=== PATIENT | male | born 1985 ===

== ENCOUNTER → 2020-05-31 15:10 | Outpatient (REF) | payer OTHER, SELFPAY ==
--- NOTE | 2020-05-31 15:15 | ECG_ITS ---
Test Reason : OPIOD DEPENDENCE Blood Pressure : / mmHG Vent. Rate : 074 BPM Atrial Rate : 074 BPM P-R Int : 144 ms QRS Dur : 090 ms QT Int : 410 ms P-R-T Axes : 066 066 055 degrees QTc Int : 455 ms Normal sinus rhythm Normal ECG When compared with ECG of 30-NOV-2017 04:22, No significant change was found Referred By: Rianna Morrissey Electronically Signed By:AUREA JOHNSON
== END ==
LOC: HO.CARD 15:10
PROVIDERS: PCP Internal Medicine; Visit Provider Internal Medicine
DX: F11.20 Opioid dependence, uncomplicated (principal)
CPT/HCPCS: 93005

== ENCOUNTER → 2020-08-14 13:24 | Outpatient (BNVA) | payer OTHER, SELFPAY | PROVIDERS: PCP Internal Medicine; Visit Provider Physician Assistant ==

== ENCOUNTER → 2020-09-05 13:14 | Outpatient (BNVA) | payer OTHER, SELFPAY | PROVIDERS: PCP Internal Medicine; Visit Provider Physician Assistant ==

== ENCOUNTER 2020-09-17 | Outpatient (REF) | payer OTHER, SELFPAY ==
--- NOTE | ~2020-09-17 | FL_ITS ---
EXAMINATION: FL BARIUM SWALLOW CLINICAL INFORMATION: Gastroesophageal complex disease without esophagitis COMPARISON: None TECHNIQUE: Barium swallow examination is performed using fluoroscopic evaluation in addition to multiple fluoroscopic spot views. The patient is imaged both upright and prone and using both thick and thin sulfate along with effervescent granules. Barium tablet was also administered. Fluoroscopy time: 1.5 minutes DAP: 13 Gycm2 Images: 46 FINDINGS: The swallowing mechanism is normal. No aspiration or penetration is seen. Esophageal motility is normal. No hernia or gastroesophageal reflux is seen. The barium tablet passed freely into the stomach. There is fold thickening of the stomach suggestive of gastritis. FL/FL barium swallow IMPRESSION: No gastroesophageal reflux or hernia is seen. There is focal thickening of the stomach suggestive of gastritis.
== END 2020-09-17 00:01 | disposition home or self-care (01) ==
LOC: HO.XRAY
PROVIDERS: Visit Provider Physician Assistant
DX: K21.9 Gastro-esophageal reflux disease without esophagitis (principal)
CPT/HCPCS: 74220

== ENCOUNTER 2021-05-16 11:08 | Outpatient (REF) | payer OTHER, SELFPAY ==
[2021-05-16 11:28] LABS: Binax Internal Control QC Valid; Binax Now Covid-19 Ag Negative (Negative)
== END 2021-05-16 11:09 | disposition home or self-care (01) ==
LOC: HO.LAB 11:08
PROVIDERS: PCP Student in an Organized Health Care Education/Training Program; Visit Provider Internal Medicine
DX: Z20.822 Contact with and (suspected) exposure to COVID-19 (principal)
CPT/HCPCS: C9803

== ENCOUNTER 2021-06-05 11:05 | Outpatient (REF) | payer OTHER, SELFPAY ==
[2021-06-05 11:34] LABS: MANUAL DIFF FLAG NO
[2021-06-05 13:03] LABS: Basophils Percent Auto 0.4 % (0-2); Eosinophils Absolute Auto 0.4 X10*3/uL (0.0-0.4); Eosinophils Percent Auto 4.7 % (0-4); Hematocrit 41.4 % (42.0-52.0); Hemoglobin 14.7 g/dl (14.0-18.0); Imm Gran Abs Auto 0.02 X10*3/uL (0.00-0.03); Imm Gran Pct Auto 0.3 % (0.0-0.4); Lymphocytes Absolute Auto 2.5 X10*3/uL (1.2-4.9); Lymphocytes Percent Auto 33.5 % (20-40); Mean Corpuscular HGB Conc 35.5 g/dl (31.0-36.0); Mean Corpuscular Volume 81.7 fL (80.0-98.0); Mean Platelet Volume 9.9 fL (9.4-12.4); Monocytes Absolute Auto 0.6 X10*3/uL (0.1-1.2); Monocytes Percent Auto 8.3 % (2-11); Neutrophils Absolute Auto 3.9 x10*3/uL (2.0-8.3); Neutrophils Percent Auto 52.8 % (45-73); Platelet Count 301 X10*3/uL (160-400); Red Blood Count 5.07 X10*6/uL (4.60-5.80); Red Cell Distribution Width 13.1 % (11.0-16.0); White Blood Count 7.4 X10*3/uL (4.8-10.8)
[2021-06-05 13:35] LABS: Alanine Aminotransferase 37 U/L (0-40); Albumin Level 4.3 g/dL (3.5-5.0); Alkaline Phosphatase 86 U/L (39-117); Anion Gap 11 (12-20); Aspartate Amino Transferase 34 U/L (5-37); Bilirubin Total 1.2 mg/dL (0.0-1.0); Blood Urea Nitrogen 16 mg/dL (9-16); Calcium 9.4 mg/dL (8.4-10.2); Carbon Dioxide 28 mmol/L (22-29); Chloride 103 mmol/L (96-108); Cholesterol 166 mg/dL; Estimated Glomerular Filt Rate > 60; Glucose Fasting 92 mg/dL (60-99); HDL Cholesterol 42 mg/dL; LDL Cholesterol Calculated 104 mg/dl; Potassium 4.6 mmol/L (3.3-5.1); Sodium 137 mmol/L (135-145); Total Protein 8.2 g/dL (6.5-8.0); Triglycerides 102 mg/dL
== END 2021-06-05 11:06 | disposition home or self-care (01) ==
LOC: HO.LAB 11:05
PROVIDERS: PCP Internal Medicine; Visit Provider Internal Medicine
DX: E66.3 Overweight (principal); E78.5 Hyperlipidemia, unspecified; D64.9 Anemia, unspecified; K21.9 Gastro-esophageal reflux disease without esophagitis
CPT/HCPCS: 36415; 80053; 80061; 85025

== ENCOUNTER 2021-06-10 09:44 | Outpatient (REF) | payer OTHER, SELFPAY ==
--- NOTE | ~2021-06-10 | US_ITS ---
EXAMINATION: US ABDOMEN COMPLETE CLINICAL INFORMATION: Abdominal pain. COMPARISON: Ultrasound abdomen 12/20/2017 and 07/30/2016. MR abdomen 07/21/2012. CT abdomen and pelvis 06/17/2012. TECHNIQUE: Real-time imaging of the abdominal viscera. FINDINGS: PANCREAS: The pancreas could not be evaluated as it was obscured by bowel gas. ABDOMINAL AORTA: The proximal, mid, and distal segments are normal in caliber. INFERIOR VENA CAVA: Visualized portions are normal. LIVER: The liver contour is normal. There is diffuse increased liver parenchymal echogenicity, consistent with hepatic steatosis. A 1 cm sized shadowing calcification is noted in the right lobe of the liver has been noted previously and is unchanged. No focal worrisome solid hepatic lesion. There is no intrahepatic biliary duct dilatation seen. GALLBLADDER: The gallbladder is physiologically distended without evidence of stones, sludge, polyps, wall thickening or pericholecystic fluid. COMMON BILE DUCT: Normal in caliber measuring 0.9 cm in diameter. RIGHT KIDNEY: No hydronephrosis. No renal calculi or focal parenchymal lesions. The kidney measures 9.4 cm in maximum dimension. LEFT KIDNEY: No hydronephrosis. No renal calculi or focal parenchymal lesions. The kidney measures 9.9 cm in maximum dimension. SPLEEN: Normal. The spleen measures 10.0 cm in maximum dimension. FREE FLUID: None. US/US abdomen complete IMPRESSION: Increased echogenicity of liver suggesting hepatic steatosis. Unchanged shadowing calcification right lobe of liver.
== END 2021-06-10 09:45 | disposition home or self-care (01) ==
LOC: HO.US 09:44
PROVIDERS: Visit Provider Internal Medicine
DX: R10.9 Unspecified abdominal pain (principal)
CPT/HCPCS: 76700

== ENCOUNTER → 2021-10-28 14:57 | Outpatient (BNVA) | payer OTHER, SELFPAY | PROVIDERS: PCP Internal Medicine; Visit Provider Surgery Vascular Surgery | DX: I83.11 Varicose veins of right lower extremity with inflammation (principal); F17.210 Nicotine dependence, cigarettes, uncomplicated | CPT/HCPCS: 99212 ==

== ENCOUNTER 2021-11-24 11:27 | Outpatient (REF) | payer OTHER, SELFPAY ==
[2021-11-25 04:50] LABS: ~Hepatitis C Antibody Reactive (Nonreactive)
[2021-11-25 15:46] LABS: HCV RNA PCR Qn 6.49 Log IU/mL (NOT DETECTED)
[2021-12-01 13:57] LABS: HCV Genotype LiPA 1a
== END 2021-11-24 11:28 | disposition home or self-care (01) ==
LOC: HO.LAB 11:27
PROVIDERS: PCP Internal Medicine; Visit Provider Internal Medicine
DX: B19.20 Unspecified viral hepatitis C without hepatic coma (principal)
CPT/HCPCS: 36415; 86803; 87522; 87902

== ENCOUNTER 2021-12-10 09:35 | Outpatient (REF) | payer OTHER, SELFPAY ==
[2021-12-10 11:05] LABS: Hematocrit 42.6 % (42.0-52.0); Hemoglobin 15.2 g/dl (14.0-18.0); Mean Corpuscular HGB Conc 35.7 g/dl (31.0-36.0); Mean Corpuscular Hemoglobin 28.7 pg (27.0-33.0); Mean Corpuscular Volume 80.5 fL (80.0-98.0); Mean Platelet Volume 9.3 fL (9.4-12.4); Platelet Count 274 X10*3/uL (160-400); Red Blood Count 5.29 X10*6/uL (4.60-5.80); Red Cell Distribution Width 13.1 % (11.0-16.0); White Blood Count 7.3 X10*3/uL (4.8-10.8)
[2021-12-10 11:12] LABS: Prothrombin Time 11.4 SEC (10.0-13.1)
[2021-12-10 11:22] LABS: Alanine Aminotransferase 26 U/L (0-40); Albumin Level 4.4 g/dL (3.5-5.0); Alkaline Phosphatase 107 U/L (39-117); Anion Gap 14 (12-20); Aspartate Amino Transferase 27 U/L (5-37); Bilirubin Total 0.6 mg/dL (0.0-1.0); Blood Urea Nitrogen 15 mg/dL (9-16); Calcium 9.2 mg/dL (8.4-10.2); Carbon Dioxide 27 mmol/L (22-29); Chloride 101 mmol/L (96-108); Estimated Glomerular Filt Rate > 60; Glucose Random 95 mg/dL (60-115); Potassium 4.4 mmol/L (3.3-5.1); Sodium 138 mmol/L (135-145); Total Protein 8.3 g/dL (6.5-8.0)
[2021-12-10 11:43] LABS: Hepatitis A Antibody IgG REACTIVE (Nonreactive); ~Hepatitis A Antibody IgG 4.27 S/CO (0.00-0.99)
[2021-12-10 11:45] LABS: TSH reflex Free T4 1.09 uIU/mL (0.32-4.0)
[2021-12-10 11:46] LABS: HBS Num1 73.62 mIU/mL (0-7.99); HBc Num1 0.14 S/CO (0.00-0.79); HBsAGNum1 0.22 S/CO (0.00-0.99); HIV AB/AG Nonreactive (Nonreactive); HIV Num 1 0.06 S/CO (0.00-0.99); Hepatitis B Core Antibody Nonreactive (Nonreactive); Hepatitis B Surface Antigen Negative (Negative); ~Hepatitis B Surface Antibody REACTIVE (Nonreactive)
[2021-12-12 16:52] LABS: HCV RNA PCR Qn 1940000 IU/mL (NOT DETECTED); HCV RNA PCR Qn 6.29 Log IU/mL (NOT DETECTED)
[2021-12-15 00:48] LABS: FIB-ALT 24 U/L (9-46); FIB-Alpha-2-Macroglobulin 171 mg/dL (106-279); FIB-Apolipoprotein A1 170 mg/dL (94-176); FIB-GGT 68 U/L (3-90); FIB-Haptoglobin 115 mg/dL (43-212); FIB-Total Bilirubin 0.7 mg/dL (0.2-1.2); Liver Fibrosis Score 0.19; Liver Fibrosis Stage F0; Nec Inflam Act Grade A0; Nec Inflam Act Score 0.09
[2021-12-18 15:02] LABS: HCV Genotype LiPA 1a
== END 2021-12-10 09:36 | disposition home or self-care (01) ==
LOC: HO.LAB 09:35
PROVIDERS: Nurse Practitioner Family; PCP Internal Medicine; Visit Provider Internal Medicine
DX: Z11.4 Encounter for screening for human immunodeficiency virus [HIV] (principal); B19.20 Unspecified viral hepatitis C without hepatic coma; R13.12 Dysphagia, oropharyngeal phase; K21.9 Gastro-esophageal reflux disease without esophagitis
CPT/HCPCS: 36415; 80053; 81596; 84443; 85027; 85610; 86704; 86706; 86708; 87340; 87389; 87902; 99212

== ENCOUNTER 2021-12-24 10:26 | Outpatient (REF) | payer OTHER, SELFPAY ==
--- NOTE | ~2021-12-24 | US_ITS ---
EXAMINATION: US LOWER EXTREMITY VENOUS (REFLUX EXAM), BILATERAL CLINICAL INDICATION: Varicose veins, bilateral lower extremity pain COMPARISON: Right lower extremity venous duplex on 07/07/2019 TECHNIQUE: Color flow triplex imaging and compression Doppler was performed to evaluate both the deep and the superficial systems bilaterally. To evaluate the superficial system, the examination was performed in the upright position. Color-flow Doppler ultrasound and compression ultrasound were utilized. In addition, maneuvers were utilized to demonstrate reflux. FINDINGS: 1. DEEP VENOUS ULTRASOUND OF THE RIGHT LOWER EXTREMITY: Common Femoral Vein: Compressible, normal respiratory variation and augmented flow. Femoral Vein: Compressible, normal color flow and augmentation. Popliteal Vein: Compressible, normal augmentation. Deep Reflux: There is no evidence of reflux in the deep system in either the common femoral vein or the popliteal vein. There is no evidence of a Bond's cyst. 2. SUPERFICIAL ULTRASOUND WITH DOPPLER OF RIGHT LOWER EXTREMITY: GREAT SAPHENOUS VEIN: Saphenofemoral Junction: 0.6 cm; Reflux: 0 ms Proximal Thigh: 0.5 cm; Reflux: 0 ms Mid Thigh: 0.4 cm; Reflux: 0 ms Above Knee: 0.4 cm; Reflux: 0 ms At Knee: 0.3 cm; Reflux: 0 ms Below Knee: 0.4 cm; Reflux: 2076 ms Mid Calf: 0.2 cm; Reflux: 916 ms Ankle: 00.3 cm; Reflux: 864 ms DUPLICATED MEDIAL GREAT SAPHENOUS VEIN: Diameter: None Imaged Reflux: NA DUPLICATED LATERAL GREAT SAPHENOUS VEIN: Diameter: 0.3 Reflux: NA SMALL SAPHENOUS VEIN: Proximal: 0.2 cm; Reflux: 3056 ms Distal: 0.4 cm; Reflux: 0 ms VEIN OF GIACOMINI: None Imaged. PERFORATORS: Multiple small venous perforators in the calf measuring less than 3 mm. VARICOSITIES: Multiple small varicosities in the thigh and calf measuring up to 0.4 mm. Varicosities in the calf to demonstrate reflux. 3. DEEP VENOUS ULTRASOUND OF THE LEFT LOWER EXTREMITY: Common Femoral Vein: Compressible, normal respiratory variation and augmented flow. Femoral Vein: Compressible, normal color flow and augmentation. Popliteal Vein: Compressible, normal augmentation. Deep Reflux: There is no evidence of reflux in the deep system in either the common femoral vein or the popliteal vein. There is no evidence of a Bond's cyst. 4. SUPERFICIAL ULTRASOUND WITH DOPPLER OF LEFT LOWER EXTREMITY: GREAT SAPHENOUS VEIN: Saphenofemoral Junction: 0.6 cm; Reflux: 0 ms Proximal Thigh: 0.6 cm; Reflux: 0 ms Mid Thigh: 0.4 cm; Reflux: 0 ms Above Knee: 0.5 cm; Reflux: 0 ms At Knee: 0.4 cm; Reflux: 0 ms Below Knee: 0.3 cm; Reflux: 0 ms Mid Calf: 0.3 cm; Reflux: 0 ms Ankle: 0.4 cm; Reflux: 0 ms DUPLICATED MEDIAL GREAT SAPHENOUS VEIN: Diameter: None Imaged Reflux: NA DUPLICATED LATERAL GREAT SAPHENOUS VEIN: Diameter: 0.3 Reflux: None SMALL SAPHENOUS VEIN: Proximal: 0.3 cm; Reflux: 0 ms Distal: 0.4 cm; Reflux: 0 ms VEIN OF GIACOMINI: None Imaged. PERFORATORS: Multiple small venous perforators in the calf measuring less than 3 mm. VARICOSITIES: Multiple small varicosities in the thigh and calf measuring up to 0.4 mm. Varicosities in the calf to demonstrate reflux. US/US venous duplex LE BI IMPRESSION: Right: Venous reflux demonstrated in the great saphenous vein below the knee. There are multiple calf and thigh varicose veins and perforating veins. Left: No reflux demonstrated in the great saphenous vein. There are multiple calf and thigh varicose veins and perforating veins.
== END 2021-12-24 10:27 | disposition home or self-care (01) ==
LOC: HO.US 10:26
PROVIDERS: Visit Provider Surgery Vascular Surgery
DX: I83.813 Varicose veins of bilateral lower extremities with pain (principal)
CPT/HCPCS: 93970

== ENCOUNTER → 2021-12-31 08:27 | Outpatient (BNVA) | payer OTHER, SELFPAY | PROVIDERS: PCP Internal Medicine; Visit Provider Internal Medicine | DX: B19.20 Unspecified viral hepatitis C without hepatic coma (principal); R13.12 Dysphagia, oropharyngeal phase | CPT/HCPCS: 99212 ==

== ENCOUNTER → 2022-01-01 14:06 | Outpatient (BNVA) | payer OTHER, SELFPAY | PROVIDERS: PCP Internal Medicine; Visit Provider Surgery Vascular Surgery | DX: M79.604 Pain in right leg (principal); M79.605 Pain in left leg | CPT/HCPCS: 99212 ==

== ENCOUNTER → 2022-01-22 11:32 | Day surgery (SDC) | payer OTHER, SELFPAY ==
[2022-01-19 09:18] VITALS: BMI 29.0
--- NOTE | 2022-01-21 10:32 | HO.ANESPROP2 ---
HPI - Anesthesia Eval Consult details Narrative: Cx'd for + Utox 36yo M for Upper Endoscopy Methadone daily PMFSH Active Problems Active Problems: All Active Problems (Updated 01/01/22 @ 14:34 by Skinny Fuller MD) Leg pain, bilateral (Acute) Hepatitis C (Acute) Varicose veins of right lower extremity with inflammation (Acute) Gastritis (Acute) Moderate recurrent major depression (Acute) Varicose veins of bilateral lower extremities with pain (Acute) Abdominal pain (Acute) Overweight (Acute) Constipation due to pain medication (Acute) Difficulty swallowing (Acute) Hepatitis C (Acute) Depression with anxiety (Acute) GERD (gastroesophageal reflux disease) (Acute) Methadone use (Acute) Past Medical History Medical History Abdominal pain Asthma Constipation due to pain medication Depression with anxiety Difficulty swallowing Gastritis GERD (gastroesophageal reflux disease) Hepatitis C Methadone use Moderate recurrent major depression Overweight Varicose veins of bilateral lower extremities with pain Family History Family History Father Medical history unknown Mother Diabetes Mental health disorder Substance use disorder Maternal Grandmother Hypertension Maternal Grandfather No problems noted. Brother No problems noted. Brother No problems noted. Sister No problems noted. Sister No problems noted. Daughter No problems noted. Surgical History Surgical History No pertinent past surgical history Social History Social History Household Members: None Housing: Apartment Alcohol intake: former Patient Tobacco Use Status: Current everyday Tobacco user Tobacco use type: Cigarette Cigarettes Per Day: 5 e-Cigarette/Vaping Use: Never Used Second Hand Smoke Exposure: No service: No Current occupational status: disabled Cognitive needs: No Hearing needs: No Vision needs: No Meds Allergies Allergy/AdvReac Type Severity Reaction Status Date / Time diphenhydramine Allergy Intermediate HIVES Verified 01/22/22 11:56 [From BENADRYL] morphine [MORPHINE] Allergy Intermediate BURNING Verified 01/22/22 11:56 Benadryl Allergy Unknown Hives Verified 01/22/22 11:56 Home Medications Medication Instructions Recorded Confirmed Last Taken Type methadone 40 mg soluble tablet 70 mg PO DAILY 04/03/21 01/22/2222 06:30 History Exam Exam Date and Time: January 21, 2022 1032 Height,Weight and Vital Signs: Height 5 ft 11 in Weight 94.347 kg Pertinent Lab Results Pertinent Lab Results: Laboratory Tests 12/10/21 12/10/21 10:03 10:03 WBC 7.3 Hgb 15.2 Hct 42.6 Plt Count 274 Sodium 138 Potassium 4.4 Chloride 101 Carbon Dioxide 27 BUN 15 Creatinine 0.87 Assessment and Plan Assessment Anesthesia Assessment: Chart Reviewed
[2022-01-22 12:36] VITALS: BP 135/89; PULSE 82; RESP 15; TEMP 36.6; O2SAT 95
[2022-01-22 13:00] LABS: Amphetamine Screen Urine Not Detected (Not Detect); Barbiturates, Urine Not Detected (Not Detect); Benzodiazepines Screen Urine Not Detected (Not Detect); Cannabinoid Screen Urine Not Detected (Not Detect); Cocaine Screen Urine Not Detected (Not Detect); Fentanyl, urine POSITIVE (Not Detect); Opiate Screen Urine Not Detected (Not Detect); Phencyclidine Screen Urine Not Detected (Not Detect)
--- NOTE | 2022-01-22 13:31 | PC.NURSE ---
Patient tox screen was positive for fentanyl. Dr. Gusman visited patient at bedside and explained why his procedure is cancelled today and to call her office to reschedule. No IV was ever inserted. Patient is dressing and will leave with ride. Pt verbalizes understanding.
== END ==
PROVIDERS: Nurse Practitioner; PCP Internal Medicine; Visit Provider Internal Medicine
DX: R13.12 Dysphagia, oropharyngeal phase (principal); Z53.8 Procedure and treatment not carried out for other reasons; F11.20 Opioid dependence, uncomplicated; B19.20 Unspecified viral hepatitis C without hepatic coma
CPT/HCPCS: 80307

== ENCOUNTER 2022-02-03 11:38 | Outpatient (REF) | payer OTHER, SELFPAY ==
--- NOTE | ~2022-02-03 | US_ITS ---
EXAMINATION: US ABDOMEN COMPLETE CLINICAL INFORMATION: Unspecified viral hepatitis C without hepatic coma. COMPARISON: Ultrasound abdomen complete 06/10/2021 and 12/20/2017. MRI abdomen with and without contrast 07/21/2012. CT abdomen and pelvis without contrast 06/17/2012. TECHNIQUE: Real-time imaging of the abdominal viscera. FINDINGS: PANCREAS: Not visualized due to bowel gas. ABDOMINAL AORTA: The proximal, mid, and distal segments are normal in caliber. INFERIOR VENA CAVA: Visualized portions are normal. LIVER: The liver is normal in size. The liver contour is normal. Liver echotexture is increased. No focal hepatic lesion. There is no intrahepatic biliary duct dilatation seen. GALLBLADDER: Normal. The gallbladder is physiologically distended without evidence of stones, sludge, polyps, wall thickening or pericholecystic fluid. COMMON BILE DUCT: Normal in caliber measuring 0.3 cm in diameter. RIGHT KIDNEY: Normal. No hydronephrosis. No renal calculi or focal parenchymal lesions. The kidney measures 10.1 cm in maximum dimension. LEFT KIDNEY: Normal. No hydronephrosis. No renal calculi or focal parenchymal lesions. The kidney measures 11.5 cm in maximum dimension. SPLEEN: Normal. The spleen measures 9.5 cm in maximum dimension. FREE FLUID: None. US/US abdomen complete IMPRESSION: Echogenic liver. Differential would include fatty infiltration and hepatocellular disease. No evidence of cirrhosis. No ascites. Limited visualization of the pancreas.
--- NOTE | ~2022-02-03 | US_ITS ---
EXAMINATION: ABDOMINAL LIVER DOPPLER CLINICAL INFORMATION: Bilateral otitis COMPARISON: None TECHNIQUE: Grayscale and color imaging of the liver vasculature including wave forms spectral analysis FINDINGS: The extrahepatic, main, right and left portal veins are patent with appropriate hepatopedal flow. Main, right and left hepatic arteries are patent. These demonstrate normal antegrade flow and normal systolic velocity of 85 cm/s in the main hepatic artery. The middle, left and right hepatic veins are patent. The IVC is patent. These demonstrate normal waveforms. The splenic vein is patent with appropriate flow. No ascites. No collateral vessels seen. US/US duplex arterial venous comp IMPRESSION: Normal liver Doppler exam.
== END 2022-02-03 11:39 | disposition home or self-care (01) ==
LOC: HO.US 11:38
PROVIDERS: Visit Provider Internal Medicine
DX: B19.20 Unspecified viral hepatitis C without hepatic coma (principal)
CPT/HCPCS: 76700; 93975

== ENCOUNTER 2022-02-04 09:17 | Outpatient (REF) | payer OTHER, SELFPAY ==
[2022-02-04 09:35] LABS: MANUAL DIFF FLAG NO
[2022-02-04 10:25] LABS: Basophils Percent Auto 0.3 % (0-2); Eosinophils Absolute Auto 0.3 X10*3/uL (0.0-0.4); Eosinophils Percent Auto 2.1 % (0-4); Hematocrit 42.1 % (42.0-52.0); Imm Gran Abs Auto 0.03 X10*3/uL (0.00-0.03); Imm Gran Pct Auto 0.3 % (0.0-0.4); Lymphocytes Absolute Auto 4.7 X10*3/uL (1.2-4.9); Lymphocytes Percent Auto 40.6 % (20-40); Mean Corpuscular HGB Conc 35.6 g/dl (31.0-36.0); Mean Corpuscular Hemoglobin 28.7 pg (27.0-33.0); Mean Corpuscular Volume 80.5 fL (80.0-98.0); Mean Platelet Volume 9.6 fL (9.4-12.4); Monocytes Absolute Auto 0.7 X10*3/uL (0.1-1.2); Monocytes Percent Auto 5.9 % (2-11); Neutrophils Absolute Auto 5.9 x10*3/uL (2.0-8.3); Neutrophils Percent Auto 50.8 % (45-73); Platelet Count 319 X10*3/uL (160-400); Red Blood Count 5.23 X10*6/uL (4.60-5.80); Red Cell Distribution Width 13.1 % (11.0-16.0); White Blood Count 11.6 X10*3/uL (4.8-10.8)
[2022-02-04 10:54] LABS: Alanine Aminotransferase 17 U/L (0-40); Albumin Level 4.3 g/dL (3.5-5.0); Alkaline Phosphatase 111 U/L (39-117); Anion Gap 16 (12-20); Aspartate Amino Transferase 16 U/L (5-37); Blood Urea Nitrogen 9 mg/dL (9-16); Carbon Dioxide 26 mmol/L (22-29); Chloride 101 mmol/L (96-108); Estimated Glomerular Filt Rate > 60; Glucose Random 76 mg/dL (60-115); Potassium 3.9 mmol/L (3.3-5.1); Sodium 139 mmol/L (135-145); Total Protein 7.7 g/dL (6.5-8.0)
[2022-02-06 18:26] LABS: HCV Log PCR <1.18 NOT DETECTED Log IU/mL (NOT DETECTED); HepC Viral Load <15 NOT DETECTED IU/mL (NOT DETECTED)
== END 2022-02-04 09:18 | disposition home or self-care (01) ==
LOC: HO.LAB 09:17
PROVIDERS: PCP Internal Medicine; Visit Provider Internal Medicine
DX: B19.20 Unspecified viral hepatitis C without hepatic coma (principal)
CPT/HCPCS: 36415; 80053; 85025; 87522; 87902

== ENCOUNTER → 2022-02-09 10:48 | Outpatient (BNVA) | payer OTHER, SELFPAY | PROVIDERS: PCP Internal Medicine; Referring Provider Internal Medicine; Visit Provider Internal Medicine | DX: B19.20 Unspecified viral hepatitis C without hepatic coma (principal); R13.12 Dysphagia, oropharyngeal phase | CPT/HCPCS: 99212 ==

== ENCOUNTER 2022-03-06 10:39 | Outpatient (REF) | payer OTHER, SELFPAY ==
[2022-03-06 11:04] LABS: MANUAL DIFF FLAG NO
[2022-03-06 11:52] LABS: Basophils Percent Auto 0.2 % (0-2); Eosinophils Absolute Auto 0.5 X10*3/uL (0.0-0.4); Hematocrit 37.7 % (42.0-52.0); Hemoglobin 13.9 g/dl (14.0-18.0); Imm Gran Abs Auto 0.04 X10*3/uL (0.00-0.03); Imm Gran Pct Auto 0.3 % (0.0-0.4); Lymphocytes Absolute Auto 2.1 X10*3/uL (1.2-4.9); Lymphocytes Percent Auto 16.9 % (20-40); Mean Corpuscular HGB Conc 36.9 g/dl (31.0-36.0); Mean Corpuscular Hemoglobin 30.2 pg (27.0-33.0); Mean Corpuscular Volume 81.8 fL (80.0-98.0); Mean Platelet Volume 9.4 fL (9.4-12.4); Monocytes Absolute Auto 0.7 X10*3/uL (0.1-1.2); Monocytes Percent Auto 5.7 % (2-11); Neutrophils Percent Auto 72.9 % (45-73); Platelet Count 235 X10*3/uL (160-400); Red Blood Count 4.61 X10*6/uL (4.60-5.80); Red Cell Distribution Width 12.9 % (11.0-16.0); White Blood Count 12.4 X10*3/uL (4.8-10.8)
[2022-03-06 12:20] LABS: Alanine Aminotransferase 16 U/L (0-40); Albumin Level 4.3 g/dL (3.5-5.0); Alkaline Phosphatase 109 U/L (39-117); Anion Gap 18 (12-20); Aspartate Amino Transferase 17 U/L (5-37); Bilirubin Total 1.5 mg/dL (0.0-1.0); Blood Urea Nitrogen 12 mg/dL (9-16); Calcium 9.2 mg/dL (8.4-10.2); Carbon Dioxide 23 mmol/L (22-29); Chloride 100 mmol/L (96-108); Estimated Glomerular Filt Rate > 60; Glucose Random 132 mg/dL (60-115); Sodium 137 mmol/L (135-145)
[2022-03-06 12:46] LABS: Erythrocyte Sedimentation Rate 25 MM/HR (0-15)
[2022-03-06 13:00] LABS: Bilirubin Direct 0.5 mg/dL (0.0-0.5); Magnesium 2.1 mg/dL (1.6-2.6)
[2022-03-10 20:46] LABS: HCV Log PCR <1.18 NOT DETECTED Log IU/mL (NOT DETECTED); HepC Viral Load <15 NOT DETECTED IU/mL (NOT DETECTED)
== END 2022-03-06 10:40 | disposition home or self-care (01) ==
LOC: HO.LAB 10:39
PROVIDERS: PCP Internal Medicine; Visit Provider Internal Medicine
DX: B19.20 Unspecified viral hepatitis C without hepatic coma (principal)
CPT/HCPCS: 36415; 80053; 82248; 82550; 83735; 85025; 85652; 86140; 87522

== ENCOUNTER 2022-03-06 11:12 | Emergency (ER) | payer OTHER, SELFPAY ==
--- NOTE | ~2022-03-06 | US_ITS ---
EXAMINATION: US VENOUS ULTRASOUND WITH DOPPLER LOWER EXTREMITY, LEFT CLINICAL INFORMATION: Left leg pain. COMPARISON: 12/24/2021 TECHNIQUE: Ultrasound of the deep veins is performed from the hip to the calf with compression sonography and color and pulse Doppler assessment. Spectral analysis with color-flow imaging is performed. FINDINGS: There is noncompressible thrombus filling the lumen of the left common femoral vein. Also, thrombus is detected within the greater saphenous vein of the proximal thigh, including saphenofemoral junction. There is partially occlusive thrombus within the visualized profunda femoris vein. There is occlusive and nonocclusive thrombus of the superficial femoral vein of the proximal, mid and lower thigh. Also, thrombus is present within the popliteal vein and within a posterior tibial vein. There is no gross evidence for thrombosis in the peroneal veins. No Bond's cyst. US/US venous duplex LE IMPRESSION: There is extensive deep vein thrombosis of the left femoral and popliteal veins, as well as within the visualized greater saphenous vein and saphenofemoral junction of the upper thigh. The critical test result was discussed VALERIE Carr, at 1:47 PM on 03/06/2022 it was ascertained that the content and the importance of the findings was understood at the time of the direct communication.
[2022-03-06 11:16] VITALS: BP 128/81; PULSE 118; RESP 18; TEMP 36.8; O2SAT 96; BMI 29.1
--- NOTE | 2022-03-06 12:03 | ED_ITS ---
HPI - General Adult General Chief complaint: Extremity Injury, Lower Stated complaint: pain from l hip down to heel Time Seen by Provider: 03/06/22 12:03 Source: patient Mode of arrival: ambulatory Limitations: no limitations History of Present Illness HPI narrative: Patient is a 36 year old assigned male at with a history of hepatitis C and GERD presenting to the emergency department today with left leg pain. Patient states that he has varicose veins in his lower legs that he's seen Dr. Fuller for but over the last few days, his left leg has been hurting worse and worse. Patient denies any dizziness, lightheadedness, abdominal pain, nausea, vomiting, fever, chills, blurry vision, double vision, loss of vision, chest pain, difficulty breathing, shortness of breath, back pain, night sweats, pain with urination, increased urinary frequency, increased urinary urgency, blood in his urine or stool, syncope or a near syncopal episode, recent trauma or falls, bowel incontinence, bladder incontinence, bowel retention, bladder retention, or any other complaints at this time. Onset (ago): day(s) (4) Location: left and lower extremity Radiation: non-radiation Severity: moderate Severity scale (1-10): 5 Quality: aching and dull Pain Consistency: constant Relieving factors: none Exacerbating factors: none Associated symptoms: denies other symptoms Treatments prior to arrival: none Related Data Home Medications Medication Instructions Recorded Confirmed methadone 40 mg soluble tablet 70 mg PO DAILY 04/03/21 01/22/22 Previous Rx's Medication Instructions Recorded pantoprazole 40 mg tablet,delayed 40 mg PO DAILY 90 days #90 tabs 11/24/21 release sofosbuvir 400 mg-velpatasvir 100 1 tab PO DAILY 12 weeks #84 tabs 12/25/21 mg-voxilaprevir 100 mg tablet (Vosevi) albuterol sulfate 90 mcg/actuation 2 puff inhalation Q6H PRN 01/28/22 aerosol inhaler Shortness Of Breath Or Wheezing 30 days #6.7 grams prednisone 10 mg tablet 10 mg PO DAILY PRN bronchospasm 6 01/28/22 days #12 tabs apixaban 5 mg (74 tabs) tablets in 5 mg PO BID #74 ea 03/06/22 a dose pack ([employer] DVT-PE Treat 30D Start) Allergies Allergy/AdvReac Type Severity Reaction Status Date / Time diphenhydramine Allergy Intermediate HIVES Verified 02/09/22 10:53 [From BENADRYL] morphine [MORPHINE] Allergy Intermediate BURNING Verified 02/09/22 10:53 Benadryl Allergy Unknown Hives Verified 02/09/22 10:53 Review of Systems Constitutional: Constitutional: Reports no additional constitutional complaints, Denies chills, Denies fever(s) and Denies night sweats Eyes: Eyes: Reports no additional eye complaints, Denies blurry vision, Denies change in vision, Denies diplopia, Denies eye discharge, Denies loss of vision and Denies eye pain ENT: Denies dizziness Cardiovascular: Cardiovascular: Reports no additional cardiovascular complaints, Denies chest pain, Denies lightheadedness, Denies Loss of Consciousness and Denies dyspnea Respiratory: Respiratory: Reports no additional respiratory complaints and Denies dyspnea Gastrointestinal: Gastrointestinal: Reports no additional gastrointestinal complaints, Denies abdominal pain, Denies melena, Denies hematochezia, Denies change in bowel habits and Denies change in stool character Genitourinary: Genitourinary: Reports no additional male genitourinary complaints, Denies hematuria, Denies oliguria, Denies difficulty urinating, De nies dysuria, Denies urinary frequency, Denies urinary hesitancy, Denies urinary incontinence and Denies urinary urgency Musculoskeletal: Musculoskeletal: Reports no additional musculoskeletal complaints, Denies numbness and Denies tingling Comments: left leg pain Neurologic: Denies dizziness, Denies loss of vision, Denies numbness and Denies tingling Psychiatric: Psychiatric: Reports no additional psychiatric complaints Endocrine: Endocrine: Reports no additional endocrine complaints Hematologic/Lymphatic: Hematologic/Lymphatic: Reports no additional hematologic/lymphatic complaints Allergic/Immunologic: Allergic/Immunologic: Reports no additional allergic/immunologic complaints PMFSH Past Medical History Attestation statement: The following information was validated with the patient. Source: old records reviewed Medical History Abdominal pain Asthma Constipation due to pain medication Depression with anxiety Difficulty swallowing Gastritis GERD (gastroesophageal reflux disease) Hepatitis C Methadone use Moderate recurrent major depression Overweight Varicose veins of bilateral lower extremities with pain Surgical History No pertinent past surgical history Family History Family History Father Medical history unknown Mother Diabetes Mental health disorder Substance use disorder Maternal Grandmother Hypertension Maternal Grandfather No problems noted. Brother No problems noted. Brother No problems noted. Sister No problems noted. Sister No problems noted. Daughter No problems noted. Social History Social History Household Members: None Housing: Apartment Alcohol intake: former Patient Tobacco Use Status: Current everyday Tobacco user Tobacco use type: Cigarette Cigarettes Per Day: 5 e-Cigarette/Vaping Use: Never Used Second Hand Smoke Exposure: No Advance Directives: No Advance Directives Information Provided: Yes service: No Current occupational status: disabled Cognitive needs: No Hearing needs: No Vision needs: No Physical Exam ED Vital Signs: Vital Signs - 24 hr 03/06/22 11:16 Temperature 98.3 F Pulse Rate 118 H Respiratory Rate 18 Blood Pressure 128/81 Pulse Oximetry 96 Oxygen Delivery Method Room Air BMI result Body Mass Index 29.1 Const General: cooperative, no acute distress, alert and awake Nutritional Appearance: well nourished Orientation/consciousness: patient oriented x3 Limitations: no limitations HENMT Head: Yes normal to inspection and Yes atraumatic Ears: hearing grossly normal bilaterally and external ears normal General nose exam: Normal external nose present, no nasal discharge noted and no epistaxis Face and sinus: Yes normal facial exam, No abrasion and No laceration Mouth: Normal oral and palatal mucosa present, no drooling and no muffled voice Eyes General: appearance normal, both eyes and all related structures Periorbital: periorbital findings normal Eyelids: Yes eyelids normal Conjunctivae: conjunctivae normal Pupils: Equal, round and reactive pupils present EOM: EOMs intact bilaterally Neck Neck: Yes normal visual inspection, Yes full ROM and Yes no lymphadenopathy Chest Chest palpation & inspection: normal inspection of the chest Resp Effort & Inspection: normal respiratory effort and able to speak in complete sentences Auscultation: clear to auscultation bilaterally Cardio Rate: regular rate Rhythm: regular rhythm GI Inspection: Yes normal to inspection Neuro General: patient oriented x3 and moves all extremities Cranial nerves: Yes Equal, round and reactive pupils present Cognition (Neuro): normal cognition Motor exam (neuro): 5/5 motor strength present throughout Sensory Exam: Normal double simultaneous stimulation for sensation Coordination: onerke-af-ayqh test normal Extrem Other: entire left leg is double in size compared to the right however, there is no erythema or warmth to the left leg General: Yes full ROM and Yes capillary refill normal Psych Appearance: grossly normal Mental Status: mental status grossly normal Affect: normal affect Attitude: cooperative Thought process: Normal thought process present Thought content: Normal thought content present Insight: Good insight present (Psych) Procedures Orthopedic Splinting/Casting Injury #1: Side: left Lower Extremity Injury Location: lower leg Other Orthopedic Equipment: crutches Medical Decision Making MDM Narrative Medical decision making narrative: Patient is a 36 year old assigned male at with a history of hepatitis C and varicose veins presenting to the emergency department today with left leg pain. Patient's physical exam showed a left leg twice the size of the right lag but without erythema or warmth. Patient's blood work showed a slightly elevated WBC count of 12.4 but was otherwise unremarkable - it should be noted the patient's labs were drawn as an outpatient order earlier today and that is why they don't all appear for review within this note. Patient's left lower leg US showed extensive deep vein thrombosis of the left femoral and popliteal veins, as well as within the visualized greater saphenous vein and saphenofemoral junction of the upper thigh. I spoke to the vascular surgeon python architect who recommended the patient be discharged on oral anti-coagulant medication and follow up with him on an out patient basis. I explained my physical exam findings as well as all test results to the patient. I answered all questions asked by the patient. Patient requested crutches to help him ambulate but declin ed pain medication when offered. I stressed the importance of the patient taking his medication as prescribed. I stressed the importance of the patient following up with his primary care provider and the vascular provider. I stressed the importance of the patient returning to the emergency department immediately if his symptoms were to worsen or if he were to develop any dizziness, shortness of breath, difficulty breathing, chest pain, blurry vision, loss of vision, nausea, vomiting, abdominal pain, fever, chills, back pain, or any other complaints. Patient verbalized agreement and understanding with this treatment plan and discharge. Medical Records Medical records reviewed: Yes I reviewed the patient's medical records. Lab Data Lab results reviewed: Yes I reviewed the patient's lab results. Labs: Lab Results 03/06/22 Range/Units 12:48 Urine Color Dark Yellow Urine Appearance Clear Urine pH 6.0 (5.0-9.0) Ur Specific [place] >= 1.030 H (1.005-1.025) Urine Protein Trace (Neg-Trace) mg/dL Urine Glucose (UA) Negative (Negative) mg/dL Urine Ketones Trace (Negative) mg/dL Urine Blood Negative (Negative) Urine Nitrite Negative (Negative) Ur Leukocyte Esterase Trace H (Negative) Urine RBC 0-2 (0-2) /HPF Urine WBC 0-5 (0-5) /HPF Ur Squamous Epith Cells 0-2 (0-2) /HPF Urine Bacteria None Seen (None Seen) Hyaline Casts 0-2 (0-2) /LPF Imaging Data Venous US: Attestation: I personally reviewed and interpreted this imaging study as follows: My impression: Large DVT in the left lower extremity. Radiologist's impression: EXAMINATION:? US VENOUS ULTRASOUND WITH DOPPLER LOWER EXTREMITY, LEFT CLINICAL INFORMATION:? Left leg pain. COMPARISON:? 12/24/2021 TECHNIQUE: Ultrasound of the deep veins is performed from the hip to the calf with compression sonography and color and pulse Doppler assessment. Spectral analysis with color-flow imaging is performed. FINDINGS: There is noncompressible thrombus filling the lumen of the left common femoral vein. Also, thrombus is detected within the greater saphenous vein of the proximal thigh, including saphenofemoral junction. There is partially occlusive thrombus within the visualized profunda femoris vein. There is occlusive and nonocclusive thrombus of the superficial femoral vein of the proximal, mid and lower thigh. Also, thrombus is present within the popliteal vein and within a posterior tibial vein. There is no gross evidence for thrombosis in the peroneal veins. No Bond's cyst. US/US venous duplex LE LT IMPRESSION:? There is extensive deep vein thrombosis of the left femoral and popliteal veins, as well as within the visualized greater saphenous vein and saphenofemoral junction of the upper thigh. ? The critical test result was discussed VALERIE Carr, at 1:47 PM on 03/06/2022 it was ascertained that the content and the importance of the findings was understood at the time of the direct communication. Dictated By: Dinesh Cabrera MD Signed By: Electronically signed by Dinesh Cabrera MD 03/06/22 [id number] Discharge Plan Discharge Clinical Impression: DVT (deep venous thrombosis) Patient Disposition: Home, Self-Care Instructions: Deep Vein Thrombosis (ED) Additional Instructions: Follow up with your primary care provider and the vascular surgeon. Return to the emergency department immediately if your symptoms worsen or if you develop any dizziness, shortness of breath, difficulty breathing, chest pain, blurry vision, loss of vision, nausea, vomiting, abdominal pain, fever, chills, back pain, or any other complaints. Prescriptions: New Eliquis DVT-PE Treat 30D Start 5 mg (74 tabs) tablets,dose pack 5 mg PO BID Qty: 74 0RF No Action Vosevi 400-100-100 mg tablet 1 tab PO DAILY 84 Days Qty: 84 0RF Rx Instructions: must administer with a meal/food albuterol sulfate 90 mcg/actuation HFA aerosol inhaler 2 puff inhalation Q6H PRN (Reason: Shortness Of Breath Or Wheezing) 30 Days Qty: 6.7 0RF prednisone 10 mg tablet 10 mg PO DAILY PRN (Reason: bronchospasm) 6 Days Qty: 12 0RF Rx Instructions: Take 3 tabs the first 2 days, then 2 tabs the next 2 days, then 1 tab the next 2 days pantoprazole 40 mg tablet,delayed release (DR/EC) 40 mg PO DAILY 90 Days Qty: 90 1RF methadone 40 mg tablet,soluble 70 mg PO DAILY Referrals: Skinny Fuller MD [Physician] - Rianna Mejia MD [Primary Care Provider] - Interventions: ED Discharge Assessment Last Done: 03/06/22 15:10 Discharge Date/Time: 03/06/22 15:11 Print Language: Bulgarian
[2022-03-06 13:01] LABS: Appearance Urine Clear; Color Urine Dark Yellow; Glucose Urine UA Negative (Negative); Leukocyte Esterase Urine Trace (Negative); Nitrite Urine Negative (Negative); Specific Gravity - Urine >= 1.030 (1.005-1.025); UMIC TRIGGER UACC YES; Urine Blood Negative (Negative); Urine Ketones Trace mg/dL (Negative); Urine Protein Trace mg/dL (Neg-Trace)
[2022-03-06 13:05] LABS: Bacteria Urine None Seen (None Seen); Hyaline Casts Urine 0-2 /LPF (0-2); RBC Urine 0-2 /HPF (0-2); Squamous Epithelial Cell Urine 0-2 /HPF (0-2); WBC Urine 0-5 /HPF (0-5)
== END 2022-03-06 15:11 | disposition home or self-care (01) ==
PROVIDERS: Physician Assistant Medical; Emergency Provider Emergency Medicine; PCP Internal Medicine
DX: I82.402 Acute embolism and thrombosis of unspecified deep veins of left lower extremity (principal); M79.662 Pain in left lower leg; Z79.01 Long term (current) use of anticoagulants; Z79.899 Other long term (current) drug therapy
CPT/HCPCS: 29505; 81001; 81003; 93971; 99282; 99284

== ENCOUNTER 2022-03-13 08:05 | Outpatient (REF) | payer OTHER, SELFPAY ==
--- NOTE | ~2022-03-13 | MM_ITS ---
EXAMINATION: MM DIAGNOSTIC DIGITAL BREAST TOMOSYNTHESIS US TARGETED BREAST, BILATERAL CLINICAL INFORMATION: Bilateral breast pain. COMPARISON: Mammography: None TECHNIQUE: Digital breast tomosynthesis is performed in both the craniocaudal and mediolateral oblique views along with computer-aided detection (CAD). Synthesized 2D images are generated from the tomosynthesis. Targeted bilateral breast ultrasound: FINDINGS: There are scattered areas of fibroglandular density (ACR BI-RADS breast composition Category b). There are no significant masses, abnormal calcifications, or other abnormalities. Targeted breast ultrasound bilaterally did not demonstrate any abnormal cystic or solid masses. No region of abnormal distal sound shadowing identified. No edematous change within the breast parenchyma is noted. Results are discussed with the patient at time of visit. MM/MM tomosynthesis diagnostic BI IMPRESSION: No mammographic or ultrasound evidence of malignancy. ASSESSMENT: BI-RADS 1: Negative RECOMMENDATION: Clinical follow up.
== END 2022-03-13 08:06 | disposition home or self-care (01) ==
LOC: HO.MAMMO 08:05
PROVIDERS: PCP Internal Medicine; Visit Provider Internal Medicine
DX: N64.4 Mastodynia (principal)
CPT/HCPCS: 76642; 77062; 77066

== ENCOUNTER → 2022-03-17 12:49 | Outpatient (BNVA) | payer OTHER, SELFPAY | PROVIDERS: PCP Internal Medicine; Visit Provider Internal Medicine | DX: B19.20 Unspecified viral hepatitis C without hepatic coma (principal); R13.12 Dysphagia, oropharyngeal phase; F11.20 Opioid dependence, uncomplicated | CPT/HCPCS: 99212 ==

== ENCOUNTER 2022-04-06 10:33 | Outpatient (REF) | payer OTHER, SELFPAY ==
[2022-04-06 10:49] LABS: MANUAL DIFF FLAG NO
[2022-04-06 11:20] LABS: Basophils Percent Auto 0.5 % (0-2); Eosinophils Absolute Auto 0.5 X10*3/uL (0.0-0.4); Eosinophils Percent Auto 7.7 % (0-4); Hematocrit 42.3 % (42.0-52.0); Hemoglobin 14.8 g/dl (14.0-18.0); Imm Gran Abs Auto 0.01 X10*3/uL (0.00-0.03); Imm Gran Pct Auto 0.2 % (0.0-0.4); Lymphocytes Absolute Auto 2.5 X10*3/uL (1.2-4.9); Lymphocytes Percent Auto 38.2 % (20-40); Mean Corpuscular Hemoglobin 28.5 pg (27.0-33.0); Mean Corpuscular Volume 81.5 fL (80.0-98.0); Mean Platelet Volume 9.3 fL (9.4-12.4); Monocytes Absolute Auto 0.6 X10*3/uL (0.1-1.2); Monocytes Percent Auto 9.7 % (2-11); Neutrophils Absolute Auto 2.8 x10*3/uL (2.0-8.3); Neutrophils Percent Auto 43.7 % (45-73); Platelet Count 254 X10*3/uL (160-400); Red Blood Count 5.19 X10*6/uL (4.60-5.80); Red Cell Distribution Width 13.2 % (11.0-16.0); White Blood Count 6.5 X10*3/uL (4.8-10.8)
[2022-04-06 11:39] LABS: Alanine Aminotransferase 15 U/L (0-40); Albumin Level 4.4 g/dL (3.5-5.0); Alkaline Phosphatase 109 U/L (39-117); Anion Gap 12 (12-20); Aspartate Amino Transferase 20 U/L (5-37); Bilirubin Total 0.9 mg/dL (0.0-1.0); Blood Urea Nitrogen 10 mg/dL (9-16); Calcium 9.6 mg/dL (8.4-10.2); Carbon Dioxide 28 mmol/L (22-29); Chloride 103 mmol/L (96-108); Estimated Glomerular Filt Rate > 60; Glucose Random 94 mg/dL (60-115); Potassium 3.8 mmol/L (3.3-5.1); Sodium 139 mmol/L (135-145); Total Protein 8.3 g/dL (6.5-8.0)
[2022-04-07 19:18] LABS: HCV Log PCR <1.18 NOT DETECTED Log IU/mL (NOT DETECTED); HepC Viral Load <15 NOT DETECTED IU/mL (NOT DETECTED)
== END 2022-04-06 10:34 | disposition home or self-care (01) ==
LOC: HO.LAB 10:33
PROVIDERS: PCP Internal Medicine; Visit Provider Internal Medicine
DX: B19.20 Unspecified viral hepatitis C without hepatic coma (principal)
CPT/HCPCS: 36415; 80053; 85025; 87522

== ENCOUNTER → 2022-04-14 11:07 | Outpatient (BNVA) | payer OTHER, SELFPAY | PROVIDERS: PCP Internal Medicine; Referring Provider Internal Medicine; Visit Provider Internal Medicine | DX: K59.00 Constipation, unspecified (principal); R13.12 Dysphagia, oropharyngeal phase; B19.20 Unspecified viral hepatitis C without hepatic coma | CPT/HCPCS: 99212 ==

== ENCOUNTER 2022-06-12 09:43 | Outpatient (REF) | payer OTHER, SELFPAY ==
[2022-06-12 10:06] LABS: MANUAL DIFF FLAG NO
[2022-06-12 10:12] LABS: Basophils Absolute Auto 0.1 X10*3/uL (0.0-0.2); Basophils Percent Auto 0.7 % (0-2); Eosinophils Absolute Auto 0.5 X10*3/uL (0.0-0.4); Eosinophils Percent Auto 5.9 % (0-4); Hematocrit 40.8 % (42.0-52.0); Hemoglobin 14.4 g/dl (14.0-18.0); Imm Gran Abs Auto 0.02 X10*3/uL (0.00-0.03); Imm Gran Pct Auto 0.3 % (0.0-0.4); Lymphocytes Absolute Auto 2.5 X10*3/uL (1.2-4.9); Lymphocytes Percent Auto 32.9 % (20-40); Mean Corpuscular HGB Conc 35.3 g/dl (31.0-36.0); Mean Corpuscular Hemoglobin 28.2 pg (27.0-33.0); Monocytes Absolute Auto 0.9 X10*3/uL (0.1-1.2); Monocytes Percent Auto 11.5 % (2-11); Neutrophils Absolute Auto 3.7 x10*3/uL (2.0-8.3); Neutrophils Percent Auto 48.7 % (45-73); Platelet Count 259 X10*3/uL (160-400); Red Cell Distribution Width 13.8 % (11.0-16.0); White Blood Count 7.6 X10*3/uL (4.8-10.8)
[2022-06-12 10:24] LABS: Alanine Aminotransferase 15 U/L (0-40); Albumin Level 4.2 g/dL (3.5-5.0); Alkaline Phosphatase 94 U/L (39-117); Anion Gap 14 (12-20); Aspartate Amino Transferase 20 U/L (5-37); Bilirubin Total 1.3 mg/dL (0.0-1.0); Blood Urea Nitrogen 12 mg/dL (9-16); Calcium 9.2 mg/dL (8.4-10.2); Carbon Dioxide 25 mmol/L (22-29); Chloride 105 mmol/L (96-108); Cholesterol 202 mg/dL; Estimated Glomerular Filt Rate > 60; Glucose Random 95 mg/dL (60-115); HDL Cholesterol 47 mg/dL; LDL Cholesterol Calculated 139 mg/dl; Potassium 4.2 mmol/L (3.3-5.1); Sodium 140 mmol/L (135-145); Total Protein 7.7 g/dL (6.5-8.0); Triglycerides 81 mg/dL
[2022-06-12 10:25] LABS: D Dimer High Sensitivity 512 NG/ML
[2022-06-14 07:59] LABS: HCV Log PCR <1.18 NOT DETECTED Log IU/mL (NOT DETECTED); HepC Viral Load <15 NOT DETECTED IU/mL (NOT DETECTED)
== END 2022-06-12 09:44 | disposition home or self-care (01) ==
LOC: HO.LAB 09:43
PROVIDERS: Internal Medicine; Absent Provider Internal Medicine; PCP Internal Medicine; Visit Provider Internal Medicine Medical Oncology
DX: Z00.00 Encounter for general adult medical examination without abnormal findings (principal); I82.402 Acute embolism and thrombosis of unspecified deep veins of left lower extremity; B19.20 Unspecified viral hepatitis C without hepatic coma
CPT/HCPCS: 36415; 80053; 80061; 85025; 85379; 87522; 93971

== ENCOUNTER 2022-06-12 10:47 | Outpatient (REF) | payer OTHER, SELFPAY ==
--- NOTE | ~2022-06-12 | US_ITS ---
EXAMINATION: US VENOUS ULTRASOUND WITH DOPPLER LOWER EXTREMITY, LEFT CLINICAL INFORMATION: Increased left leg edema. Patient on Eliquis. COMPARISON: None TECHNIQUE: Ultrasound of the deep veins is performed from the hip to the calf with compression sonography and color and pulse Doppler assessment. Spectral analysis with color-flow imaging is performed. FINDINGS: Positive deep venous thrombosis is seen in the left common femoral, profunda femoral and proximal femoral veins. Partially occlusive thrombus is seen in the mid segment of the left femoral vein. The distal femoral, popliteal and calf veins are patent. There is no left popliteal cyst. Mild subcutaneous edema seen in the left calf. US/US venous duplex LE LT IMPRESSION: 1. Positive deep venous thrombosis in the left common femoral, profunda femoral and proximal femoral veins. 2. Partially occlusive thrombus in the mid segment of the left femoral vein. 3. Mild subcutaneous edema in the left calf.
== END 2022-06-12 10:48 | disposition home or self-care (01) ==
LOC: HO.US 10:47
PROVIDERS: Visit Provider Internal Medicine Medical Oncology
DX: I82.402 Acute embolism and thrombosis of unspecified deep veins of left lower extremity (principal)
CPT/HCPCS: 93971

== ENCOUNTER 2023-02-01 09:44 | Outpatient (AMB) | payer OTHER, SELFPAY ==
--- NOTE | 2023-02-01 10:06 | MHC.PC.OV ---
Vital Signs 02/01/23 10:08 Height 6 ft 1 in Weight 205 lb 6 oz BMI 27.1 BP 100/64 Blood Pressure Location Rt brachial Position Sitting Pulse 64 Pulse Source Pulse Oximeter Pulse Oximetry (%) 97 Oxygen Delivery Method Room Air Intake Visit Reasons: DVT Follow Up Intake Note: Patient is here to follow up on [symptoms]. [place] Required: Yes Marble Mason Language: [place] Station Cleaning Porter: Not Required per policy Accompanied by: Self / Same As Patient Allergies diphenhydramine [From BENADRYL] Allergy (Intermediate, Verified 02/01/23 10:07) HIVES morphine [MORPHINE] Allergy (Intermediate, Verified 02/01/23 10:07) BURNING Tobacco use date assessed: 02/01/23 Dental Screening Dental Screen Date: 02/01/23 Did you have a dental visit in the last 12 months?: Yes Did you have a dental problem in the last 6 months where you did not have access to dental care?: No Was dental information given to patient?: Patient has dentist HPI HPI Comments History of Present Illness Details 37-year-old male past medical history significant for GERD, depression, anxiety, hepatitis-C, varicose veins bilateral extremities, gastritis, left leg DVT. Patient currently on Eliquis 5 mg b.i.d. for anticoagulation, patient previously seen by Dr. Clark flash welding machine operator back in May 2022 patient was recommended to stay on Eliquis x6 months and follow-up in 3 months. Hypercoagulable workup was ordered as well however I do not see the results of this. Patient states he was never given a follow-up appointment with flash welding machine operator. Message sent to Hematology office to call patient to schedule follow-up. Patient continues to have pain and swelling in left lower extremity states he is taking his Eliquis twice daily as prescribed. Will order venous Doppler to follow-up on DVT. Patient denies chest pain, palpitations reports occasional shortness of breath at night. Offered to utilize certified court/medical interpreter for this appointment however patient declined. [facility] Medical History (Updated 08/04/22 @ 09:25 by Gia Johnson RN) DVT (deep venous thrombosis) Asthma Gastritis Moderate recurrent major depression Varicose veins of bilateral lower extremities with pain Abdominal pain Overweight Constipation due to pain medication Difficulty swallowing Hepatitis C Depression with anxiety GERD (gastroesophageal reflux disease) Methadone use Surgical History No pertinent past surgical history Family History Father Medical history unknown Mother Diabetes Mental health disorder Substance use disorder Maternal Grandmother Hypertension Maternal Grandfather No problems noted. Brother No problems noted. Brother No problems noted. Sister No problems noted. Sister No problems noted. Daughter No problems noted. Other No family history of cancer Social History Household Members: None Housing: Homeless Housing Other:: living from home to home Are you a primary managed care specialist to a significant other at home: No Do you presently have visiting nurse or other home services: No Alcohol intake: former Patient Tobacco Use Status: Current everyday Tobacco user Tobacco use type: Cigarette Cigarettes Per Day: 5 e-Cigarette/Vaping Use: Never Used Second Hand Smoke Exposure: No service: No Current occupational status: disabled Cognitive needs: No Hearing needs: No Vision needs: No Questionnaire Thrive Questionnaire Date Thrive assessed: 05/27/22 ESTEFANIA-7 AMB Questionnaire ESTEFANIA-7 Date ESTEFANIA - 7 assessed: 05/27/22 Source: Developed by Drs. Sae Diaz, Domitila Lentz, Aaron Jesus and colleagues, with an educational faiza from [employer]. Review of Systems Const Denies chills, Denies fatigue, Denies fever(s) and Denies poor appetite Eyes Denies no additional complaints ENT Reports Normal hearing present Card Denies chest pain, Denies syncope, Denies rapid heart rate and Denies dyspnea Resp Denies cough and Denies dyspnea GI Denies change in stool character, Denies constipation, Denies diarrhea, Denies nausea and Denies vomiting Denies dysuria, Denies urinary frequency and Denies urinary urgency Musc Reports other (Left leg pain and swelling ) Neuro Reports Normal hearing present, Denies confusion and Denies syncope Psych Denies confusion Endo Denies fatigue Physical exam (Primary Care) Vital Signs: Last Vital Signs Pulse 64 02/01/23 10:08 BP 100/64 02/01/23 10:08 Pulse Ox 97 02/01/23 10:08 Oxygen Delivery Method Room Air 02/01/23 10:08 BMI result Body Mass Index 27.1 Tobacco/Smoking Status: Tobacco use Status Tobacco use date assessed 02/01/23 02/01/23 10:12 Patient Tobacco Use Status Current everyday Tobacco 02/01/23 10:12 Tobacco use type Cigarette 02/01/23 10:12 e-Cigarette/Vaping Use Never Used 02/01/23 10:12 Thrive Assessment: Date of Thrive Assessment Date Thrive assessed 05/27/22 02/01/23 10:12 Const General: No confusion Orientation/consciousness: No confusion HENMT Head: Yes normocephalic and Yes atraumatic Eyes Conjunctivae: conjunctivae normal Chest Chest palpation & inspection: normal inspection of the chest Resp Effort & Inspection: normal respiratory effort Auscultation: clear to auscultation bilaterally, no crackles, no rhonchi and no wheezes Cardio Rate: regular rate Rhythm: regular rhythm Heart sounds: S1 normal heart sound present and S2 normal heart sound present Peripheral pulses: dorsalis pedis present GI Inspection: Yes normal to inspection General: Yes no CVA tenderness Back/Spine/Pelvis Back: no CVA tenderness Neuro General: No confusion Cranial nerves: Yes Normal hearing present Extrem General: Yes edema (left lower extremity) Right lower extremity: normal to inspection; no edema Left lower extremity: lower leg Details: non-pitting edema Details: 2+ and ecchymosis (anterior nugent); no unusual warmth Assessment and Plan Assessment & Plan (1) Left leg DVT: Code(s): I82.402 - Acute embolism and thrombosis of unspecified deep veins of left lower extremity Plan: Left leg venous Doppler ordered to follow-up on left leg DVT given patient continues to experiencing ongoing pain, swelling. Patient last seen by Hematology in May was recommended to follow-up in 3 months however patient reports he never received a follow-up appointment. Message sent to Oncology to contact patient to schedule follow-up visit. Hypercoagulable workup previously ordered by Dr. Clark however I do not see that patient has had this completed yet. Continue on Eliquis 5 mg b.i.d. Plan Keep scheduled follow-up with PCP or follow-up sooner if needed. Orders: Orders US venous duplex LE LT Today I82.402 - Acute embolism and thrombosis of unspecified deep veins of left lower extremity Coding Level of Care Code Est Pt Level 3 (79978) Diagnoses Left leg DVT I82.402
[2023-02-01 10:08] VITALS: BP 100/64; PULSE 64; O2SAT 97; BMI 27.1
== END 2023-02-01 10:35 | disposition home or self-care (01) ==
PROVIDERS: PCP Internal Medicine; Visit Provider Nurse Practitioner Family
DX: I82.402 Acute embolism and thrombosis of unspecified deep veins of left lower extremity (principal)
CPT/HCPCS: 99213

== ENCOUNTER 2023-06-03 09:31 | Outpatient (AMB) | payer OTHER, SELFPAY ==
[2023-06-03 09:32] VITALS: BP 138/80; BMI 26.8
--- NOTE | 2023-06-03 09:32 | MHC.PC.OV ---
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: No Accompanied by: Self / Same As Patient Allergies diphenhydramine [From BENADRYL] Allergy (Intermediate, Verified 06/03/23 09:54) HIVES morphine [MORPHINE] Allergy (Intermediate, Verified 06/03/23 09:54) BURNING Medication List - Last Reconciled 06/03/23 by Rianna Morrissey MD acetaminophen 500 mg PO Q6H PRN albuterol sulfate 90 mcg/actuation 2 puffs inhalation Q6H PRN 30 days apixaban (Eliquis) 5 mg PO BID 90 days clotrimazole 1% (Lotrimin AF (clotrimazole)) 1 appl topical BID hydrocortisone 1% (Anti-Itch (hydrocortisone)) 1 appl topical TID PRN 30 days methadone 70 mg PO DAILY omeprazole 20 mg PO DAILY 90 days polyvinyl alcohol 1.4% (Artificial Tears (polyvinyl alcohol)) 1 drp ophthalmic (eye) BID-QID PRN 30 days sertraline 25 mg PO DAILY 90 days Tobacco use date assessed: 06/03/23 Dental Screening Dental Screen Date: 06/03/23 Did you have a dental visit in the last 12 months?: No Did you have a dental problem in the last 6 months where you did not have access to dental care?: No Was dental information given to patient?: Patient has dentist HPI HPI Comments History of Present Illness Details This is a 37-year-old male with left leg DVT diagnosed last year and severe depression without psychotic features that comes for his physical exam. On chronic anticoagulation for his left leg DVT in which ultrasound of the leg will be repeated. I will increase sertraline for his depression and Emil from Behavior[facility] talk with him today. Has no suicidal thoughts. On methadone due to history of IV heroin use. [facility] Medical History (Updated 06/03/23 @ 11:03 by Rianna Morrissey MD) DVT (deep venous thrombosis) Asthma Gastritis Moderate recurrent major depression Varicose veins of bilateral lower extremities with pain Abdominal pain Overweight Constipation due to pain medication Difficulty swallowing Hepatitis C Depression with anxiety GERD (gastroesophageal reflux disease) Methadone use Surgical History No pertinent past surgical history Family History Father Medical history unknown Mother Diabetes Mental health disorder Substance use disorder Maternal Grandmother Hypertension Maternal Grandfather No problems noted. Brother No problems noted. Brother No problems noted. Sister No problems noted. Sister No problems noted. Daughter No problems noted. Other No family history of cancer Social History Household Members: None Housing: Homeless Housing Other:: living from home to home Are you a primary care transitions nurse to a significant other at home: No Do you presently have visiting nurse or other home services: No Alcohol intake: former Patient Tobacco Use Status: Current everyday Tobacco user Tobacco use type: Cigarette Cigarettes Per Day: 5 e-Cigarette/Vaping Use: Never Used Second Hand Smoke Exposure: No service: No Current occupational status: disabled Cognitive needs: No Hearing needs: No Vision needs: No Questionnaire PHQ-9 Over the last 2 weeks, how often have you been bothered by any of the following problems? 1. Little interest or pleasure in doing things: more than half the days 2. Feeling down, depressed, or hopeless: nearly every day 3. Trouble falling or staying asleep, or sleeping too much: nearly every day 4. Feeling tired or having little energy: nearly every day 5. Poor appetite or overeating: several days 6. Feeling bad about yourself - or that you are a failure or have let yourself or your family down: nearly every day 7. Trouble concentrating on things, such as reading the newspaper or watching television: nearly every day 8. Moving or speaking so slowly that other people could have noticed. Or the opposite - being so fidgety or restless that you have been moving around a lot more than usual: nearly every day 9. Thoughts that you would be better off or of hurting yourself in some way: not at all Total score: 21 Depression Screening Interpretation: Positive Depression Screening Follow-up: Existing condition and In treatment Depression Screening Done: Yes 98375 - PHQ-9 Billing: Yes Source: Developed by Drs. Sae Diaz, Aaron Vasquez and colleagues, with an educational faiza from [employer]. Thrive Questionnaire Date Thrive assessed: 06/03/23 I am a: Patient What is your living situation today?: I do not have a steady places to live Within the past 12 months, did the food you bought not last and you didn't have the money to get more?: Never true Within the past 12 months, did you worry whether your food would run out before you got money to buy more?: Never true Do you have trouble paying for medicines?: No Do you have trouble getting transportation to medical appointments?: No Do you have trouble paying your heating and electricity bill?: No Do you have trouble taking care of your child, family member or friend?: No Do you have trouble with day-to-day activities such as bathing, preparing meals, shopping, managing finances, etc.?: No Are you currently unemployed and looking for a job?: No Are you interested in more education?: No Please select the resources that you would like help with: Housing/Intermediate and None Currently or been in a relationship where the following occur: no concerns reported THRIVE Score: 1 AUDIT C Alcohol Use Questionnaire (AUDIT-C) 1. How often do you have a drink containing alcohol?: Never Total Score: 0 ESTEFANIA-7 AMB Questionnaire ESTEFANIA-7 Date ESTEFANIA - 7 assessed: 06/03/23 Feeling nervous, anxious, or on edge: 3 = Nearly every day Not being able to stop or control worryin = Several days Worrying too much about different things: 3 = Nearly every day Trouble relaxin = Nearly every day Being so restless that it is hard to sit still: 3 = Nearly every day Becoming easily annoyed or irritable: 3 = Nearly every day Feeling afraid as if something awful might happen: 3 = Nearly every day Total ESTEFANIA-7 score (0-4 normal; 5-9 mild; 10-14 moderate; 15-21 severe): 19 Source: Developed by Drs. Sae Diaz, Aaron Vasquez and colleagues, with an educational faiza from [employer]. ESTEFANIA-7 Assessment Billing ESTEFANIA-7 Assessment Tool: ESTEFANIA-7 Assessment 80499 Review of Systems Const All systems reviewed & are unremarkable except as noted in HPI and below Eyes Reports no additional complaints, Denies change in vision and Denies other visual disturbances Card Denies chest pain at rest, Denies chest pain with activity, Denies edema, Denies irregular heart rhythm, Denies claudication, Denies dyspnea, Denies dyspnea on exertion, Denies orthopnea, Denies paroxysmal nocturnal dyspnea and Denies slow heart rate Resp Denies cough, Denies dyspnea and Denies dyspnea on exertion GI Denies abdominal pain, Denies change in bowel habits, Denies excessive flatus, Denies nausea and Denies vomiting Denies urinary hesitancy, Denies urinary incontinence and Denies urinary urgency Musc Denies abnormal gait, Denies atrophy, Denies deformity and Denies limited range of motion Neuro Denies abnormal gait, Denies behavioral changes, Denies confusion and Denies lack of coordination Psych Denies behavioral changes and Denies confusion Physical exam (Primary Care) Vital Signs: Last Vital Signs BP 138/80 06/03/23 09:32 BMI result Body Mass Index 26.8 Tobacco/Smoking Status: Tobacco use Status Tobacco use date assessed 06/03/23 06/03/23 09:42 Patient Tobacco Use Status Current everyday Tobacco 06/03/23 09:42 Tobacco use type Cigarette 06/03/23 09:42 e-Cigarette/Vaping Use Never Used 06/03/23 09:42 PHQ-9: PHQ-9 Score PHQ-9: Total score 21 06/03/23 10:00 Depression Screening Interpretation: Positive Depression Screening Follow-up: Existing condition and In treatment Thrive Assessment: Date of Thrive Assessment Date Thrive assessed 06/03/23 06/03/23 09:42 Currently or been in a relationship where the following occur: no concerns reported Const General: No confusion Orientation/consciousness: patient oriented x3 and No confusion [facility] Head: Yes normal to inspection, Yes normocephalic and Yes atraumatic Ears: external ears normal Eyes General: appearance normal, both eyes and all related structures Eyelids: Yes eyelids normal Conjunctivae: conjunctivae normal Neck Neck: Yes normal visual inspection and Yes supple Resp Effort & Inspection: normal respiratory effort Auscultation: clear to auscultation bilaterally Cardio Jugular venous distension: no JVD Rate: regular rate Rhythm: regular rhythm Heart sounds: S1 normal heart sound present and S2 normal heart sound present GI Inspection: Yes normal to inspection Palpation (GI): Soft to palpation and nontender Auscultation: normal bowel sounds Skin General skin exam: no rashes or lesions noted Neuro General: patient oriented x3, no focal motor deficits and No confusion Extrem General: Yes full ROM Psych Appearance: grossly normal Assessment and Plan Assessment & Plan (1) Physical exam: Code(s): Z00.00 - Encounter for general adult medical examination without abnormal findings Plan: Repeat in a year. (2) Left leg DVT: Code(s): I82.402 - Acute embolism and thrombosis of unspecified deep veins of left lower extremity Plan: Continue Eliquis. Repeat ultrasound. Referred to Hematology-Oncology. (3) Methadone use: Comment: Constipation-bowel regimen Code(s): F11.20 - Opioid dependence, uncomplicated Plan: Continue methadone use supervised by methadone clinic. (4) Severe major depression without psychotic features: Code(s): F32.2 - Major depressive disorder, single episode, severe without psychotic features Plan: Increase sertraline to 50 mg. Orders: Orders US venous duplex LE LT Today I82.402 - Acute embolism and thrombosis of unspecified deep veins of left lower extremity FL upper GI series Today K21.9 - Gastro-esophageal reflux disease without esophagitis Coding Level of Care Code Est Pt Prev Care 18-39y(45554) Diagnoses Physical exam Z00.00 Left leg DVT I82.402 Methadone use F11.20 Severe major depression without psychotic features F32.2 Additional Codes ESTEFANIA-7 Assessment Billing - ESTEFANIA-7 Assessment Tool: ESTEFANIA-7 Assessment 74031 ([id number]) Time Spent (min) 31
== END 2023-06-03 10:24 | disposition home or self-care (01) ==
PROVIDERS: Visit Provider Internal Medicine
DX: Z00.00 Encounter for general adult medical examination without abnormal findings (principal); I82.402 Acute embolism and thrombosis of unspecified deep veins of left lower extremity; F11.20 Opioid dependence, uncomplicated; F32.2 Major depressive disorder, single episode, severe without psychotic features
CPT/HCPCS: 96127; 99395

== ENCOUNTER 2023-08-12 09:04 | Outpatient (REF) | payer OTHER, SELFPAY ==
--- NOTE | ~2023-08-12 | FL_ITS ---
EXAMINATION: XR FLUOROSCOPY UPPER GI WITH AIR CLINICAL INFORMATION: Dysphagia. Reflux. COMPARISON: 09/17/2020 TECHNIQUE: Fluoroscopic air contrast upper GI examination was performed utilizing standard techniques with thin and thick barium and effervescent granules. Numerous spot images were obtained. FINDINGS: Lateral cine images of the oropharynx and hypopharynx demonstrate normal swallow mechanism with normal epiglottic inversion and soft palate elevation. No tracheal penetration, glottic or subglottic aspiration identified. No nasopharyngeal reflux present. Hypopharyngeal structures appear normal without evidence of mass or diverticulum. There was no significant cricopharyngeal achalasia. Dual and single contrast images of the esophagus demonstrate normal caliber, contour, and mucosal pattern. No evidence of stricture, mass, or ulcerations identified. Esophageal peristalsis was normal. A small type I hiatal hernia is present. Significant gastroesophageal reflux is seen up the thoracic inlet. Dual contrast and single contrast images of the stomach demonstrated a normal contour. The gastric rugal folds have a thickened appearance. There are multiple tiny areas of contrast pooling in the fundus and body the stomach that may represents small superficial aphthous ulcers. Contrast freely passed into the gastric antrum and duodenal bulb without delay. Single and air-contrast images of the duodenal bulb demonstrate no abnormality. The duodenal sweep has a normal appearance, course, and mucosal fold appearance. The imaged proximal jejunum has a normal fold pattern and caliber. FLUOROSCOPY TIME: 2 minutes 57 seconds Number of Spot Images: 7 Number of Cine: 11 DOSE AREA PRODUCT: 1998 uGy-m2 (microgray-meter squared) FL/FL upper GI w air IMPRESSION: 1. Small type I hiatal hernia 2. Significant gastroesophageal reflux 3. Thickened gastric rugal folds. In addition, there are multiple tiny areas of contrast pooling in the fundus and body the stomach. These findings are suggestive of erosive gastritis. Recommend correlation with EGD. This procedure was performed by Magdy Goldsmith PA-C, and supervised by Dr. Lima
== END 2023-08-12 09:05 | disposition home or self-care (01) ==
LOC: HO.XRAY 09:04
PROVIDERS: PCP Internal Medicine; Visit Provider Internal Medicine
DX: K21.9 Gastro-esophageal reflux disease without esophagitis (principal)
CPT/HCPCS: 74246

== ENCOUNTER → 2023-08-12 09:07 | Outpatient (BNV) | payer OTHER, SELFPAY | PROVIDERS: PCP Internal Medicine; Visit Provider Physician Assistant Surgical | DX: R13.10 Dysphagia, unspecified (principal); K21.9 Gastro-esophageal reflux disease without esophagitis | CPT/HCPCS: 74246 ==

== ENCOUNTER 2023-08-23 10:07 | Outpatient (AMB) | payer OTHER, SELFPAY ==
[2023-08-23 10:11] VITALS: BP 118/75; PULSE 77; BMI 28.3
--- NOTE | 2023-08-23 10:11 | A.OFFVIS_ITS ---
Vital Signs 08/23/23 10:11 Height 6 ft 1 in Weight 214 lb 4.629 oz BMI 28.3 BP 118/75 Blood Pressure Location Lt brachial Position Sitting Pulse 77 Intake Visit Reasons: abnormal findings on imaging Intake Note: Martin presents today for abnormal upper GI serious showing significant GERD. CC: Patient c/o epigastric pain, RUQ quadrant pain, abdominal bloating, nausea, bad taste in his mouth, constipation, and blood in stool sometimes. Yarding Supervisor Required: Yes Accompanied by: Self / Same As Patient Allergies diphenhydramine [From BENADRYL] Allergy (Intermediate, Verified 08/23/23 10:23) HIVES morphine [MORPHINE] Allergy (Intermediate, Verified 08/23/23 10:23) BURNING HPI Comments Details: This is a 36-year-old gentleman with past medical history of chronic hepatitis-C (tx with mavyret 2017 but nonadherent), previous IV drug use currently on methadone, who is presenting for 12-week follow-up after starting Vesovi. He just completed 12 weeks of Vosevi on 04/03. Labs reviewed with the patient, normal Hb and LFTs. Viral load NEGATIVE. Main complaint today is RUQ abd pain that comes and goes, feels like a sharp cramp. Notices it with constipation, pain gets worse when he is straining to have a BM and gets better when he has passed a BM. Used to happen occasionally in the past but has been bothering him more in the past few days. Otherwise, no nausea, vomiting or changes in appetite. Intermittent globus sensation unchanged and not progressed. Reports no further IVDU, last usage in December 2021. Was recently diagnosed with LLE DVT. Is on Eliquis. Follows with Dr Clark. Reports significant improvement in his swelling, now able to walk, albeit with the help of a cane. Denies any shortness of breath, chest pain, palpitations. Reminded to HOLD eliquis for 2 days prior to his upcoming EGD. 08/23/23: Was lost to follow up. Returns due to abnormal UGIS. 1. Small type I hiatal hernia 2. Significant gastroesophageal reflux 3. Thickened gastric rugal folds. In addition, there are multiple tiny areas of contrast pooling in the fundus and body the stomach. These findings are suggestive of erosive gastritis. Recommend correlation with EGD. This was done to explore pt's report of sensation of Something stuck in the left side of his throat leading to frequent throat clearing. Otherwise no nausea,vomiting abd pain. Weight curve stable. To recall, EGD was booked for pt x2 in 2021 as well for similar complaints but canceled due to active IVDU fentanyl. Pt also remains on eliquis for DVT. Appears to be lost to follow up in Hematology's office. Missed 05/2023 appt with Hematology. [facility] Medical History (Updated 08/23/23 @ 11:09 by Albertina Gusman MD) DVT (deep venous thrombosis) Asthma Gastritis Moderate recurrent major depression Varicose veins of bilateral lower extremities with pain Abdominal pain Overweight Constipation due to pain medication Difficulty swallowing Hepatitis C Depression with anxiety GERD (gastroesophageal reflux disease) Methadone use Surgical History No pertinent past surgical history Family History Father Medical history unknown Mother Diabetes Mental health disorder Substance use disorder Maternal Grandmother Hypertension Maternal Grandfather No problems noted. Brother No problems noted. Brother No problems noted. Sister No problems noted. Sister No problems noted. Daughter No problems noted. Other No family history of cancer Social History Household Members: None Housing: Homeless Housing Other:: living from home to home Are you a primary resident care supervisor to a significant other at home: No Do you presently have visiting nurse or other home services: No Alcohol intake: former Patient Tobacco Use Status: Current everyday Tobacco user Tobacco use type: Cigarette Cigarettes Per Day: 5 e-Cigarette/Vaping Use: Never Used Second Hand Smoke Exposure: No service: No Current occupational status: disabled Cognitive needs: No Hearing needs: No Vision needs: No Review of Systems Const All systems reviewed & are unremarkable except as noted in HPI and below Physical Exam Vital Signs: Last Vital Signs Pulse 77 08/23/23 10:11 BP 118/75 08/23/23 10:11 BMI result Body Mass Index 28.3 NAD Nonicteric No abd distention No overt resp distress L leg with purplish serpentine echymosis and nonpitting edema Assessment & Plan Assessment & Plan (1) Oropharyngeal dysphagia: Code(s): R13.12 - Dysphagia, oropharyngeal phase (2) Abnormal upper gastrointestinal barium series: Code(s): R93.3 - Abnormal findings on diagnostic imaging of other parts of digestive tract Category: Medical (3) DVT (deep venous thrombosis): Comment: left leg-taking eliquis Code(s): I82.409 - Acute embolism and thrombosis of unspecified deep veins of unspecified lower extremity Category: Medical Plan Cont with globus sensation. Had EGD sanjiv in 12/2021 which was canceled due to pos fentanyl screen. Pt then no-showed for Apr 2022 EGD. Main complaint persistent although today also reports feeling not being able to breath as well from R nostril and increased mucus discharge. UGIS consistent with GERD and gastritis. Reports no drug use. Plan: - EGD to be booked - Pt advised to hold eliquis x2 days prior to procedure - Aso strongly advised to abstain from drug use at least 7-10 days prior to procedure - Cont omeprazole 20 - If EGD neg, can consider ENT referral Pt was also reminded to call hematology office to stewart his appt. Follow up after EGD Coding Level of Care Code Est Pt Level 4 (61826) Diagnoses Oropharyngeal dysphagia R13.12 Abnormal upper gastrointestinal barium series R93.3 DVT (deep venous thrombosis) I82.409
== END 2023-08-23 12:34 | disposition home or self-care (01) ==
PROVIDERS: PCP Internal Medicine; Visit Provider Internal Medicine
DX: R13.12 Dysphagia, oropharyngeal phase (principal); R93.3 Abnormal findings on diagnostic imaging of other parts of digestive tract; I82.409 Acute embolism and thrombosis of unspecified deep veins of unspecified lower extremity
CPT/HCPCS: 99214

== ENCOUNTER → 2023-08-23 10:07 | Outpatient (BNVA) | payer OTHER, SELFPAY | PROVIDERS: PCP Internal Medicine; Visit Provider Internal Medicine | DX: K21.9 Gastro-esophageal reflux disease without esophagitis (principal); R10.13 Epigastric pain; K59.00 Constipation, unspecified; R10.11 Right upper quadrant pain; R11.0 Nausea; R13.12 Dysphagia, oropharyngeal phase; R93.3 Abnormal findings on diagnostic imaging of other parts of digestive tract; I82.409 Acute embolism and thrombosis of unspecified deep veins of unspecified lower extremity; Z86.19 Personal history of other infectious and parasitic diseases | CPT/HCPCS: 99212 ==

== ENCOUNTER 2023-09-16 13:19 | Day surgery (SDC) | payer OTHER, SELFPAY ==
[2023-09-14 13:44] VITALS: BMI 28.2
--- NOTE | 2023-09-15 09:27 | HO.ANESPROP2 ---
Documented by User: Chelsea Vail NP 09/15/23 09:29 HPI - Anesthesia Eval Consult details Narrative: 38yo M for Upper Endoscopy with Balloon Dilitation Methadone daily Eliquis for hx DVT PMFSH Active Problems Active Problems: All Active Problems Abnormal upper gastrointestinal barium series (Acute) Severe major depression without psychotic features (Acute) Moderate recurrent major depression (Acute) Physical exam (Acute) Constipation (Acute) Hospital discharge follow-up (Acute) Breast pain, right (Acute) Breast pain, left (Acute) Pain of both breasts (Acute) Left leg DVT (Acute) Leg pain, bilateral (Acute) Hepatitis C (Acute) Varicose veins of right lower extremity with inflammation (Acute) DVT (deep venous thrombosis) (Acute) Gastritis (Acute) Moderate recurrent major depression (Acute) Varicose veins of bilateral lower extremities with pain (Acute) Abdominal pain (Acute) Overweight (Acute) Constipation due to pain medication (Acute) Difficulty swallowing (Acute) Hepatitis C (Acute) Depression with anxiety (Acute) GERD (gastroesophageal reflux disease) (Acute) Methadone use (Acute) Past Medical History Medical History (Updated 08/23/23 @ 11:09 by Albertina Gusman MD) DVT (deep venous thrombosis) Asthma Gastritis Moderate recurrent major depression Varicose veins of bilateral lower extremities with pain Abdominal pain Overweight Constipation due to pain medication Difficulty swallowing Hepatitis C Depression with anxiety GERD (gastroesophageal reflux disease) Methadone use Family History Family History Father Medical history unknown Mother Diabetes Mental health disorder Substance use disorder Maternal Grandmother Hypertension Maternal Grandfather No problems noted. Brother No problems noted. Brother No problems noted. Sister No problems noted. Sister No problems noted. Daughter No problems noted. Other No family history of cancer Surgical History Surgical History (Updated 09/14/23 @ 13:41 by Gia Johnson RN) History of esophagogastroduodenoscopy (EGD) Social History Social History Household Members: None Housing: Homeless Housing Other:: living from home to home Are you a primary neonatal intensive care nurse to a significant other at home: No Do you presently have visiting nurse or other home services: No Alcohol intake: former Patient Tobacco Use Status: Current everyday Tobacco user Tobacco use type: Cigarette Cigarettes Per Day: 5 e-Cigarette/Vaping Use: Never Used Second Hand Smoke Exposure: No service: No Current occupational status: disabled Cognitive needs: No Hearing needs: No Vision needs: No Meds Allergies Allergy/AdvReac Type Severity Reaction Status Date / Time diphenhydramine Allergy Intermediate HIVES Verified 08/23/23 10:23 [From BENADRYL] morphine [MORPHINE] Allergy Intermediate BURNING Verified 08/23/23 10:23 Home Medications ?Medication ?Instructions ?Recorded ?Confirmed ?Last Taken ?Type methadone 40 mg soluble tablet 70 mg PO DAILY 04/03/21 09/14/23 01/22/22 06:30 History acetaminophen 500 mg tablet 500 mg PO Q6H PRN Pain 03/13/22 09/14/23 Unknown History Exam Height,Weight and Vital Signs: Height 6 ft 1 in Weight 97.069 kg Assessment and Plan Assessment Anesthesia Assessment: Chart Reviewed Documented by User: Ilan Quick MD 09/16/23 13:32 PMF Past Medical History Medical History (Updated 08/23/23 @ 11:09 by Albertina Gusman MD) DVT (deep venous thrombosis) Asthma Gastritis Moderate recurrent major depression Varicose veins of bilateral lower extremities with pain Abdominal pain Overweight Constipation due to pain medication Difficulty swallowing Hepatitis C Depression with anxiety GERD (gastroesophageal reflux disease) Methadone use Family History Family History Father Medical history unknown Mother Diabetes Mental health disorder Substance use disorder Maternal Grandmother Hypertension Maternal Grandfather No problems noted. Brother No problems noted. Brother No problems noted. Sister No problems noted. Sister No problems noted. Daughter No problems noted. Other No family history of cancer Family history of problems with anesthesia: No Surgical History Surgical History (Updated 09/14/23 @ 13:41 by Gia Johnson RN) History of esophagogastroduodenoscopy (EGD) History of Problems with Anesthesia: No Social History Social History Household Members: None Housing: Homeless Housing Other:: living from home to home Are you a primary neonatal intensive care nurse to a significant other at home: No Do you presently have visiting nurse or other home services: No Alcohol intake: former Patient Tobacco Use Status: Current everyday Tobacco user Tobacco use type: Cigarette Cigarettes Per Day: 5 e-Cigarette/Vaping Use: Never Used Second Hand Smoke Exposure: No service: No Current occupational status: disabled Cognitive needs: No Hearing needs: No Vision needs: No Meds Allergies Allergy/AdvReac Type Severity Reaction Status Date / Time diphenhydramine Allergy Intermediate HIVES Verified 08/23/23 10:23 [From BENADRYL] morphine [MORPHINE] Allergy Intermediate BURNING Verified 08/23/23 10:23 Home Medications ?Medication ?Instructions ?Recorded ?Confirmed ?Last Taken ?Type methadone 40 mg soluble tablet 70 mg PO DAILY 04/03/21 09/14/23 01/22/22 06:30 History acetaminophen 500 mg tablet 500 mg PO Q6H PRN Pain 03/13/22 09/14/23 Unknown History Exam Airway Mallampati Class: I TM Dist: >3cm Neck ROM: Full Loose/Missing/Broken Teeth: Yes, Upper and Lower Heart: ok Lungs: ok Other: mult missing teeth Assessment and Plan Assessment Anesthesia Assessment: Anesthesia Plan Discussed Final Anesthetic Review Family History of Problems with Anesthesia: No History of Problems with Anesthesia: No NPO: Yes ASA Class: III Final Preanesthetic Review: No Changes in Pt Med Stat, Meds/Allgs Chart Reviewed, Consent Obtained/Reviewed and Anes Risks/Benef Reviewed Patient Risk: Intermediate Procedure Risk: Intermediate Anesthetic Plan Anesthetic Plan: Agree w/ Assess. and Plan and TIVA Disposition: Standard PACU
[2023-09-16 13:24] VITALS: BMI 28.2
--- NOTE | 2023-09-16 13:32 | MHC.SHP ---
Pre-Procedural Eval Section A - 24 Hr Update-Section A only Date of Service: 09/16/23 The patient is an INPATIENT: No The patient has been examined within 24 hours of the surgical procedure. The History & Physical has been completed within 30 days and I have reviewed it.: Yes Section B - Complete if H&P > 30 days Chief Complaint: Abnormal findings on diagnostic imaging,Dysphagia, Allergies: Allergies Allergy/AdvReac Type Severity Reaction Status Date / Time diphenhydramine Allergy Intermediate HIVES Verified 08/23/23 10:23 [From BENADRYL] morphine [MORPHINE] Allergy Intermediate BURNING Verified 08/23/23 10:23 Plan Diagnosis/Plan: Unchanged I have reviewed the history and physical and performed a pertinent physical examination on my patient. No changes have occurred unless specified. Time Spent With Patient Time: Total time managing care of this patient today ____ minutes.
--- NOTE | 2023-09-16 13:33 | P.OP_ITS ---
Operative Note Operative Note Date of Service: 09/16/23 Narrative: Procedure: Esophagogastroduodenoscopy Endoscopist: Albertina Gusman MD Indication: Dysphagia, abnormal UGIS Anesthesia Provider: Dr Ilan Quick Anesthesia Type: MAC ?? EGD Procedure:?? The procedure, indications, preparation and potential complications were re viewed with the patient, who indicated understanding and gave written informed consent to proceed. A physical exam was performed. The endoscope was introduced through the mouth, and advanced to the second part of duodenum. The mucosa was carefully examined on slow withdrawal of the endoscope. The patient tolerated the procedure well. There were no immediate complications.? ? EGD Findings:? * Esophagus:? Normal mucosa noted in the entire esophagus. The Z line was at 39 cm and a short SCM tongue was noted up to 37 cm. Cold forceps biopsies were taken to rule out Curiel's esophagus. * Stomach:? Erythema and congestion was noted in the body of the stomach. Retroflexion was performed in the cardia. Random gastric biopsies were taken to rule out H Pylori infection. * Duodenum:? Normal mucosa was noted in the whole of the examined duodenum. Cold forceps biopsies were taken from duodenal bulb and second portion of the duodenum to rule out celiac sprue. Additional intervention: A soft tip Savary wire was introduced through the biopsy channel of the gastroscope and advanced to the antrum. The gastroscope was then backed out. A 20 mm Savary Amanuel bougie was advanced over the guidewire and the esophagus was dilated. On relook, there was a small superficial tear at the level of cricopharyngeus indicating successful dilation. ? EGD Impressions:? * UES stenosis (dilation) * Irregular Z line (biopsy) * Gastritis (biopsy) * Normal duodenum (biopsy) ?? Recommendations:?? * Follow biopsy results. Our office will call or send a letter with results within 7-10 days. * Continue PPI therapy. * Resume anticoagulation tomorrow. * If H pylori +, patient will be prescribed eradication therapy followed by test of cure. * Avoid NSAIDs. Above has been reviewed with the patient.
--- NOTE | 2023-09-16 13:39 | PC.NURSE ---
anesthesia made aware of pt stating he has a sensation of popping left flank up to chest that comes and goes when he stops his eliquis. anes ok'd to proceed.
[2023-09-16 13:59] VITALS: BP 114/70; PULSE 70; RESP 16; TEMP 36.1; O2SAT 100
[2023-09-16 14:14] VITALS: BP 113/70; PULSE 81; RESP 16; O2SAT 95
[2023-09-16 14:27] VITALS: BP 109/75; PULSE 70; RESP 16; TEMP 36.5; O2SAT 98
== END 2023-09-16 15:10 | disposition home or self-care (01) ==
PROVIDERS: PCP Internal Medicine; Visit Provider Internal Medicine
PROC: (CPT 43248; principal; 2023-09-16 14:40)
DX: K21.00 Gastro-esophageal reflux disease with esophagitis, without bleeding (principal); K29.60 Other gastritis without bleeding; K22.2 Esophageal obstruction; K22.9 Disease of esophagus, unspecified; R13.12 Dysphagia, oropharyngeal phase; R93.3 Abnormal findings on diagnostic imaging of other parts of digestive tract; B18.2 Chronic viral hepatitis C; J45.909 Unspecified asthma, uncomplicated; F33.9 Major depressive disorder, recurrent, unspecified; F11.20 Opioid dependence, uncomplicated; F17.210 Nicotine dependence, cigarettes, uncomplicated; Z86.718 Personal history of other venous thrombosis and embolism; Z79.01 Long term (current) use of anticoagulants
CPT/HCPCS: 43248; 43239; 88305; 88313; 88342; C1769; J2250; J2704

== ENCOUNTER → 2023-09-16 13:19 | Outpatient (BNV) | payer OTHER, SELFPAY | PROVIDERS: PCP Internal Medicine; Visit Provider Internal Medicine | DX: R13.10 Dysphagia, unspecified (principal); R93.3 Abnormal findings on diagnostic imaging of other parts of digestive tract; K29.70 Gastritis, unspecified, without bleeding | CPT/HCPCS: 43239; 43248 ==

== ENCOUNTER 2023-10-01 15:12 | Outpatient (AMB) | payer OTHER, SELFPAY ==
--- NOTE | 2023-10-01 15:13 | MHC.OFFVIS ---
Vital Signs 10/01/23 15:16 Height 5 ft 11 in Weight 213 lb 13.574 oz BMI 29.8 BP 130/93 H Blood Pressure Location Lt brachial Position Sitting Pulse 109 H Intake Visit Reasons: s/p egd dil Intake Note: Martin presents in the office as a follow up EGD w/ DIL CC: Allergies diphenhydramine [From BENADRYL] Allergy (Intermediate, Verified 10/01/23 15:16) HIVES morphine [MORPHINE] Allergy (Intermediate, Verified 10/01/23 15:16) BURNING HPI Comments Details: This is a 36-year-old gentleman with past medical history of chronic hepatitis-C (tx with mavyret 2018 but nonadherent), previous IV drug use currently on methadone, who is presenting for 12-week follow-up after starting Vesovi. He just completed 12 weeks of Vosevi on 04/03. Labs reviewed with the patient, normal Hb and LFTs. Viral load NEGATIVE. Main complaint today is RUQ abd pain that comes and goes, feels like a sharp cramp. Notices it with constipation, pain gets worse when he is straining to have a BM and gets better when he has passed a BM. Used to happen occasionally in the past but has been bothering him more in the past few days. Otherwise, no nausea, vomiting or changes in appetite. Intermittent globus sensation unchanged and not progressed. Reports no further IVDU, last usage in December 2021. Was recently diagnosed with LLE DVT. Is on Eliquis. Follows with Dr Clark. Reports significant improvement in his swelling, now able to walk, albeit with the help of a cane. Denies any shortness of breath, chest pain, palpitations. Reminded to HOLD eliquis for 2 days prior to his upcoming EGD. 08/23/23: Was lost to follow up. Returns due to abnormal UGIS. 1. Small type I hiatal hernia 2. Significant gastroesophageal reflux 3. Thickened gastric rugal folds. In addition, there are multiple tiny areas of contrast pooling in the fundus and body the stomach. These findings are suggestive of erosive gastritis. Recommend correlation with EGD. This was done to explore pt's report of sensation of Something stuck in the left side of his throat leading to frequent throat clearing. Otherwise no nausea,vomiting abd pain. Weight curve stable. To recall, EGD was booked for pt x2 in 2021 as well for similar complaints but canceled due to active IVDU fentanyl. Pt also remains on eliquis for DVT. Appears to be lost to follow up in Hematology's office. Missed 05/2023 appt with Hematology. 09/16/23: UES stenosis (dilation) Irregular Z line (biopsy) Gastritis (biopsy) Normal duodenum (biopsy) Path: Diagnosis A. Duodenum, biopsy: Duodenal mucosa with preserved villi and no specific change. B. Stomach, random, biopsy: Chronic gastritis with focal mild activity; negative for H pylori, intestinal metaplasia and dysplasia. C. Gastroesophageal junction, biopsy: Squamous mucosa with hyperplasia and focal intraepithelial neutrophils consistent with esophagitis, and columnar mucosa with moderate chronic active inflammation and focal intestinal metaplasia; negative for dysplasia (see comment). 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 Clinical and endoscopic correlation is advised. 10/01/23: Here for follow up to receive results of EGD. ? BE although was in a background esophagitis. No HP on gastric biopsies. Reports improvement in swallowing. Continues on omeprazole 20 once daily. Main issue today is intermittent constipation. To recall pt on methadone maintenance. Was also occ using on top of that but reports complete abstinence the last 3 months. [facility] Medical History DVT (deep venous thrombosis) Asthma Gastritis Moderate recurrent major depression Varicose veins of bilateral lower extremities with pain Abdominal pain Overweight Constipation due to pain medication Difficulty swallowing Hepatitis C Depression with anxiety GERD (gastroesophageal reflux disease) Methadone use Surgical History (Updated 10/01/23 @ 15:16 by LUISITO Little) History of esophagogastroduodenoscopy (EGD) Family History Father Medical history unknown Mother Diabetes Mental health disorder Substance use disorder Maternal Grandmother Hypertension Maternal Grandfather No problems noted. Brother No problems noted. Brother No problems noted. Sister No problems noted. Sister No problems noted. Daughter No problems noted. Other No family history of cancer Social History Household Members: None Housing: Homeless Housing Other:: living from home to home Are you a primary residential child care counselor to a significant other at home: No Do you presently have visiting nurse or other home services: No Alcohol intake: former Patient Tobacco Use Status: Current everyday Tobacco user Tobacco use type: Cigarette Cigarettes Per Day: 5 e-Cigarette/Vaping Use: Never Used Second Hand Smoke Exposure: No service: No Current occupational status: disabled Cognitive needs: No Hearing needs: No Vision needs: No Review of Systems Const All systems reviewed & are unremarkable except as noted in HPI and below Physical Exam Vital Signs: Last Vital Signs Pulse 109 H 10/01/23 15:16 BP 130/93 H 10/01/23 15:16 BMI result Body Mass Index 29.8 No apparent distress Nonicteric Abdomen soft, nondistended Alert and oriented x3, normal gait Assessment & Plan Assessment & Plan (1) Oropharyngeal dysphagia: Code(s): R13.12 - Dysphagia, oropharyngeal phase (2) Abnormal upper gastrointestinal barium series: Code(s): R93.3 - Abnormal findings on diagnostic imaging of other parts of digestive tract Category: Medical (3) DVT (deep venous thrombosis): Comment: left leg-taking eliquis Code(s): I82.409 - Acute embolism and thrombosis of unspecified deep veins of unspecified lower extremity Category: Medical (4) Constipation: Code(s): K59.00 - Constipation, unspecified Category: Medical Plan 1. Dysphagia: Resolved. Was likely due to cricopharyngeal narrowing. Better after dilation. Pt advised to call office for sx return PRN. 2. ? BE Short segment and in background of inflammation. Pt to cont omeprazole 20mg daily. Can consider repeat EGD in 5 y for question of short segment BE. (Pt will also be due for colo at that time as will be 43 y.o) 3. Constipation: Possibly related to lack of fiber in diet and methadone use. Plan: - Add fiber supplementation - Improve hydration - Miralax daily Follow up in a year. Reminder set for EGD/colo in 2028. Medications: New psyllium husk mix into at least 8 oz of water or juice before administering 1 tbsp PO DAILY 480 grams 0RF polyethylene glycol 3350 (Miralax) HOLD for loose stools 17 grams PO DAILY 30 days 510 grams 0RF Refilled omeprazole 20 mg PO DAILY 90 days 90 caps 1RF Coding Level of Care Code Est Pt Level 4 (56352) Diagnoses Oropharyngeal dysphagia R13.12 Abnormal upper gastrointestinal barium series R93.3 DVT (deep venous thrombosis) I82.409 Constipation K59.00
[2023-10-01 15:16] VITALS: BP 130/93; PULSE 109; BMI 29.8
== END 2023-10-01 15:51 | disposition home or self-care (01) ==
PROVIDERS: PCP Internal Medicine; Visit Provider Internal Medicine
DX: R13.12 Dysphagia, oropharyngeal phase (principal); R93.3 Abnormal findings on diagnostic imaging of other parts of digestive tract; I82.409 Acute embolism and thrombosis of unspecified deep veins of unspecified lower extremity; K59.00 Constipation, unspecified
CPT/HCPCS: 99214

== ENCOUNTER → 2023-10-01 15:12 | Outpatient (BNVA) | payer OTHER, SELFPAY | PROVIDERS: PCP Internal Medicine; Visit Provider Internal Medicine | DX: I82.409 Acute embolism and thrombosis of unspecified deep veins of unspecified lower extremity (principal); K59.00 Constipation, unspecified; R13.12 Dysphagia, oropharyngeal phase; R93.3 Abnormal findings on diagnostic imaging of other parts of digestive tract | CPT/HCPCS: 99212 ==

== ENCOUNTER 2024-06-06 12:22 | Outpatient (AMB) | payer OTHER, SELFPAY ==
--- NOTE | 2024-06-06 12:48 | MHC.PC.OV ---
Vital Signs 06/06/24 12:49 Height 5 ft 11 in Weight 215 lb BMI 30.0 BP 122/80 Blood Pressure Location Lt brachial Position Sitting Intake Visit Reasons: PE Intake Note: Patient here for a physical exam Roof Panel Hanger Required: Yes Roof Panel Hanger Language: Product Ambassador Name: Rianna Morrissey MD Information Interpreted: non-clinical & clinical Accompanied by: Significant Other Allergies diphenhydramine [From BENADRYL] Allergy (Intermediate, Verified 06/06/24 13:01) HIVES morphine [MORPHINE] Allergy (Intermediate, Verified 06/06/24 13:01) BURNING Medication List - Last Reconciled 06/06/24 by Rianna Morrissey MD albuterol sulfate 90 mcg/actuation 2 puffs inhalation Q6H PRN 30 days apixaban (Eliquis) 5 mg PO BID 90 days clonidine HCl mg PO methadone 70 mg PO DAILY omeprazole 20 mg PO DAILY 90 days sertraline mg PO DAILY Tobacco use date assessed: 06/06/24 Dental Screening Dental Screen Date: 06/06/24 Did you have a dental visit in the last 12 months?: Yes Did you have a dental problem in the last 6 months where you did not have access to dental care?: No Was dental information given to patient?: Patient has dentist HPI HPI Comments History of Present Illness Details The patient is a 38-year-old male presenting for his physical exam with persistent leg pain and swelling. The symptoms have been ongoing and affecting his ability to stand or work for extended periods. The swelling is significant, with skin discoloration and an inability to wear shoes due to size increase. The pain is exacerbated upon exertion, feeling like blood flow is restricted, contributing to anxiety and fear. A previous examination indicated no obstruction in the vascular system, yet the patient desires further investigation. The condition is managed with medication including antihypertensives and anticoagulants, yet the patient reports feeling debilitated, weak, and afraid of worsening symptoms. [facility] Medical History (Updated 06/06/24 @ 13:19 by Rianna Morrissey MD) Severe major depression without psychotic features DVT (deep venous thrombosis) Asthma Gastritis Moderate recurrent major depression Varicose veins of bilateral lower extremities with pain Abdominal pain Overweight Constipation due to pain medication Difficulty swallowing Hepatitis C Depression with anxiety GERD (gastroesophageal reflux disease) Methadone use Surgical History History of esophagogastroduodenoscopy (EGD) Family History Father Medical history unknown Mother Diabetes Mental health disorder Substance use disorder Maternal Grandmother Hypertension Maternal Grandfather No problems noted. Brother No problems noted. Brother No problems noted. Sister No problems noted. Sister No problems noted. Daughter No problems noted. Other No family history of cancer Social History Household Members: None Housing: Apartment Are you a primary acute care assistant to a significant other at home: No Do you presently have visiting nurse or other home services: No Alcohol intake: former Patient Tobacco Use Status: Current everyday Tobacco user Tobacco use type: Cigarette Cigarettes Per Day: 5 e-Cigarette/Vaping Use: Never Used Second Hand Smoke Exposure: No service: No Current occupational status: disabled Cognitive needs: No Hearing needs: No Vision needs: No Questionnaire PHQ-9 Over the last 2 weeks, how often have you been bothered by any of the following problems? 1. Little interest or pleasure in doing things: nearly every day 2. Feeling down, depressed, or hopeless: more than half the days 3. Trouble falling or staying asleep, or sleeping too much: several days 4. Feeling tired or having little energy: nearly every day 5. Poor appetite or overeating: several days 6. Feeling bad about yourself - or that you are a failure or have let yourself or your family down: several days 7. Trouble concentrating on things, such as reading the newspaper or watching television: nearly every day 8. Moving or speaking so slowly that other people could have noticed. Or the opposite - being so fidgety or restless that you have been moving around a lot more than usual: more than half the days 9. Thoughts that you would be better off or of hurting yourself in some way: not at all Total score: 16 Depression Screening Interpretation: Positive (no suicidal thoughts) Depression Screening Follow-up: Existing condition, Community Mental Health Worker F/U and Follow-up Visit Requested Depression Screening Done: Yes 29263 - PHQ-9 Billing: Yes Source: Developed by Drs. Sae Diaz, Domitila Lentz, Aaron Jesus and colleagues, with an educational faiza from [employer]. Thrive Questionnaire Date Thrive assessed: 06/06/24 I am a: Patient What is your living situation today?: I choose not to answer this question Within the past 12 months, did the food you bought not last and you didn't have the money to get more?: I choose not to answer this question Within the past 12 months, did you worry whether your food would run out before you got money to buy more?: Sometimes True Do you have trouble paying for medicines?: I choose not to answer this question Do you have trouble getting transportation to medical appointments?: I choose not to answer this question Do you have trouble paying your heating and electricity bill?: Yes Do you have trouble taking care of your child, family member or friend?: No Do you have trouble with day-to-day activities such as bathing, preparing meals, shopping, managing finances, etc.?: Yes Are you currently unemployed and looking for a job?: I choose not to answer this question Are you interested in more education?: I choose not to answer this question Please select the resources that you would like help with: Food and None Currently or been in a relationship where the following occur: I choose not to answer THRIVE Score: 2 AUDIT C Alcohol Use Questionnaire (AUDIT-C) 1. How often do you have a drink containing alcohol?: Never Total Score: 0 Score Reviewed/Action Taken: No ESTEFANIA-7 AMB Questionnaire ESTEFANIA-7 Date ESTEFANIA - 7 assessed: 06/06/24 Feeling nervous, anxious, or on edge: 3 = Nearly every day Not being able to stop or control worryin = Nearly every day Worrying too much about different things: 3 = Nearly every day Trouble relaxin = More than half the days Being so restless that it is hard to sit still: 3 = Nearly every day Becoming easily annoyed or irritable: 3 = Nearly every day Feeling afraid as if something awful might happen: 3 = Nearly every day Total ESTEFANIA-7 score (0-4 normal; 5-9 mild; 10-14 moderate; 15-21 severe): 20 Source: Developed by Drs. Sae Diaz, Domitila Lentz, Aaron Jesus and colleagues, with an educational faiza from [employer]. ESTEFANIA-7 Assessment Billing ESTEFANIA-7 Assessment Tool: ESTEFANIA-7 Assessment 17092 Review of Systems Const All systems reviewed & are unremarkable except as noted in HPI and below Card Denies chest pain at rest, Denies chest pain with activity, Denies edema, Denies irregular heart rhythm, Denies claudication, Denies dyspnea, Denies dyspnea on exertion, Denies orthopnea, Denies paroxysmal nocturnal dyspnea and Denies slow heart rate Resp Denies cough, Denies dyspnea and Denies dyspnea on exertion GI Denies abdominal pain, Denies change in bowel habits, Denies excessive flatus, Denies nausea and Denies vomiting Denies urinary hesitancy, Denies urinary incontinence and Denies urinary urgency Musc Denies atrophy, Denies deformity and Denies limited range of motion Skin/Breast Denies bleeding lesions, Denies changing lesions and Denies rash Physical exam (Primary Care) Vital Signs: Last Vital Signs BP 122/80 06/06/24 12:49 BMI result Body Mass Index 30.0 BMI Assessment/Plan discussion: High BMI High, discussed plan: lifestyle, weight reduction, dietary and physical activity Tobacco/Smoking Status: Tobacco use Status Tobacco use date assessed 06/06/24 06/06/24 12:57 Patient Tobacco Use Status Current everyday Tobacco 06/06/24 12:57 Tobacco use type Cigarette 06/06/24 12:57 e-Cigarette/Vaping Use Never Used 06/06/24 12:57 Are you ready to quit: No Tobacco cessation counseling provided: Yes Items discussed: Nicotine replacement and QuitWorks Relapse Prevention: discussed the importance of a supportive environment, discussed extending NRT, discussed negative mood or depression after quitting, weight gain after smoking is common and discussed dietary, exercise and/or lifestyle changes Number of minutes spent counselin CPT code: Less than 3 minutes PHQ-9: PHQ-9 Score PHQ-9: Total score 16 06/06/24 13:04 Depression Screening Interpretation: Positive (no suicidal thoughts) Depression Screening Follow-up: Existing condition, Community Mental Health Worker F/U and Follow-up Visit Requested Thrive Assessment: Date of Thrive Assessment Date Thrive assessed 06/06/24 06/06/24 12:57 Currently or been in a relationship where the following occur: I choose not to answer HENCT Head: Yes normal to inspection, Yes normocephalic and Yes atraumatic Ears: external ears normal Eyes General: appearance normal, both eyes and all related structures Eyelids: Yes eyelids normal Conjunctivae: conjunctivae normal Neck Neck: Yes normal visual inspection and Yes supple Resp Effort & Inspection: normal respiratory effort Auscultation: clear to auscultation bilaterally Cardio Jugular venous distension: no JVD Rate: regular rate Rhythm: regular rhythm Heart sounds: S1 normal heart sound present and S2 normal heart sound present GI Inspection: Yes normal to inspection Palpation (GI): Soft to palpation and nontender Auscultation: normal bowel sounds Skin General skin exam: no rashes or lesions noted Neuro General: no focal motor deficits Extrem General: Yes full ROM Psych Appearance: grossly normal Office Procedures Flu Questionnaire Does the patient have a severe egg allergy?: No Immunizations Fluarix Triv [id number] (PF) 45 mcg (15 mcg x 3)/0.5 mL IM syringe Performing Provider: Rianna Morrissey MD Performing Location: [facility] [place] [facility] Documented (not given) by: LUISITO Simpson on 06/06/24 13:20 Reason Not Given: Patient Refused Boostrix Tdap 2.5 Lf unit-8 mcg-5 Lf/0.5 mL intramuscular syringe Performing Provider: Rianna Morrissey MD Performing Location: [facility] [place] [facility] Administered by: LUISITO Simpson on 06/06/24 13:20 Dose Route Admin Location Dispensed Lot Number Expiration Date NDC Inspector Air Carrier 0.5 mL IM Right Deltoid 0.5 mL [id number] 07/15/26 [id number] [employer] VIS Given Date VIS Provided VIS Publication Date 06/06/24 Single Vaccine 20 Eligibility Eligibility Date Funding Source Not [facility] Eligible 06/06/24 Private Coding Level of Care Code Est Pt Level 3 (99651) Est Pt Prev Care 18-39y(40444) Diagnoses Physical exam Z00.00 Moderate recurrent major depression F33.1 Lymphedema I89.0 Left leg DVT I82.402 Methadone use F11.20 Additional Codes PHQ-9 - 83513 - PHQ-9 Billing: Yes ([id number]) ESTEFANIA-7 Assessment Billing - ESTEFANIA-7 Assessment Tool: ESTEFANIA-7 Assessment 79973 ([id number]) Time Spent (min) 34 Assessment & Plan Assessment & Plan (1) Physical exam: Code(s): Z00.00 - Encounter for general adult medical examination without abnormal findings Category: Medical (2) Moderate recurrent major depression: Code(s): F33.1 - Major depressive disorder, recurrent, moderate Category: Medical (3) Lymphedema: Code(s): I89.0 - Lymphedema, not elsewhere classified Category: Medical (4) Left leg DVT: Code(s): I82.402 - Acute embolism and thrombosis of unspecified deep veins of left lower extremity Category: Medical (5) Methadone use: Comment: Constipation-bowel regimen Code(s): F11.20 - Opioid dependence, uncomplicated Category: Medical Plan - Order venous Doppler ultrasound to assess for deep vein thrombosis or other vascular issues. - Consider referral to vascular surgery for further evaluation and management. - Adjust or review current anticoagulation therapy, considering patient's bleeding risk on Eliquis. - Continue psychiatric support with current medications and consider dosage adjustment if necessary. - Introduce compression stocking therapy for symptom relief in leg swelling. - Address nicotine cessation again, considering alternative methods due to prior patch intolerance. Patient was informed and verbally consented to the use of an ambient scribe for clinic note documentation during this visit. I discussed the significance of the leg symptoms with the patient, emphasizing the need to rule out any vascular complications through diagnostic imaging. We reviewed his concerns about medication effects and agreed to ensure careful monitoring of current anticoagulant therapy. The patient was informed about the role of compression stockings in managing symptoms, and a referral for vascular specialist consultation was suggested. In psychiatric management, I highlighted the importance of current medication adherence with potential dosage adjustments based on symptomatology. We also revisited smoking cessation strategies, acknowledging the previous adverse reactions to nicotine replacement therapy. Orders: Orders Comprehensive [place]. Panel Fast Today Z00.00 - Encounter for general adult medical examination without abnormal findings Vitamin B12 and Folate Today E53.8 - Deficiency of other specified B group vitamins Vitamin D 25-OH Total Today E55.9 - Vitamin D deficiency, unspecified TDaP Immunization Today Z23 - Encounter for immunization Influenza [id number] Immunization Today Z23 - Encounter for immunization Complete Blood Count Auto Diff Today I82.409 - Acute embolism and thrombosis of unspecified deep veins of unspecified lower extremity Referrals Vascular Surgery Referral I89.0 - Lymphedema, not elsewhere classified Medications: New Boostrix Tdap (diphth,pertus(acell),tetanus) 0.5 mL IM ONCE 0.5 mL 0RF NS Z23 - Encounter for immunization Fluarix Triv [id number] (PF) (flu vacc [id number] 6mos up(PF)) 0.5 mL IM ONCE 0.5 mL 0RF NS Z23 - Encounter for immunization [compression stockings] As directed 2 ea 4RF I89.0 - Lymphedema, not elsewhere classified Patient Instructions: - Monitor leg symptoms closely and report any changes. - Adhere to current medication regimen, and notify me of any side effects. - Wear compression stockings as advised to reduce swelling. - Attend the scheduled vascular specialist evaluation. - Follow up with psychiatric care and discuss any mood changes or side effects. - Re-attempt smoking cessation, utilizing supportive resources or alternative measures. - Seek medical attention for any severe pain, bleeding, or concerning symptoms.
[2024-06-06 12:49] VITALS: BP 122/80
--- OUTSIDE RECORDS SUMMARY | 2024-06-06 13:33 | XMS_ITS | Clinical Summary ---
Author Organization [employer] Address [address] [place] [address] Care Team Providers Care Human Resources Benefits Specialist Name Role Phone Unavailable Primary Care Provider Unavailabl e Allergies Active Allergy Reactions Criticality Noted Date Comments Diphenhydramine 10/07/2021 Medications Eliquis 5 MG tablet TOME CALOS TABLETA DOS VECES AL D A FOR 90 DAYS 3 Active methadone (Methadose) 40 MG dispersible tablet Take 1 tablet by mouth at bed time. Active omeprazole (PriLOSEC) [address] capsule TOME 1 C PSULA POR V A ORAL TODOS LOS D 4 Active sertraline (Zoloft) 25 MG tablet TAKE 1 TABLET ORALLY DAILY FOR 90 DAYS 4 Active acetaminophen (Tylenol) 500 MG tablet Take 1 tablet (500 mg) by mouth every 6 (six) hours if needed for mild pain for up to 20 doses. 20 tablet 4 Active Additional Information Patient not taking.Reported on 01/31/2024 Sodium Fluoride (PreviDent 5000 Plus) 1.1 % cream Apply 1 mg to teeth 3 times daily. 1 g 3 4 Active Active Problems Problem Noted Date Diagnosed Date Dental calculus 02/29/2024 Dental caries 02/29/2024 Missing teeth, acquired 02/29/2024 Tooth sensitivity to cold 02/29/2024 Tooth sensitivity to heat 02/29/2024 Retained dental root 01/31/2024 Severe dental caries 10/11/2023 Chronic periodontitis 10/11/2023 Divergence of root of tooth 10/11/2023 Social History Tobacco Use Types Packs/Day Years Used Date Smoking Tobacco: Every Day Cigarettes Passive Smoke Exposure: Never Smokeless Tobacco: Never Tobacco Cessation:Ready to Q uit: Not Asked; Counseling Given: Not Answered Alcohol Use Standard Drinks/Week Comments Defer 0 (1 standard drink = 0.6 oz pur e alcohol) Sex and Gender Information Value Date Recorded Sex Assigned at Male 02/23/2022 10:40 AM EDT Legal Sex Male 10:40 AM EDT Gender Identity Choose not to disclose 10:40 AM EDT Sexual Orientation Choose not to disclose 2021 10:40 AM EDT Last Filed Vital Signs Vital Sign Reading Time Taken Comments Blood Pressure 110/72 02/29/2024 9:11 AM EST Pulse 62 10/11/2023 1:19 PM EDT Temperature - - Respiratory Rate - - Oxygen Saturation - - Inhaled Oxygen Concentration - - Weight - - Height - - Body Mass Index - - Plan of Treatment Health Maintenance Due Date Last Done Comments Depression Screening 1983 HIV Screening 1983 Lipid Panel 1983 SDOH Screening 1983 Alcohol/Substance Use Screening 1995 Family Planning (PISQ) 09/12/1998 Hepatitis C Screening 09/12/2001 DTaP/Tdap/Td Vaccines (1 - Tdap) 09/12/2002 Hepatitis B Vaccines (1 of 3 - 19+ 3-dose series) 09/12/2002 Pneumococcal Vaccine: Pediatrics (0 to 5 Years) and At-Risk Patients (6 to 49) Years) (1 of 2 - PCV) 09/12/2002 COVID-19 Vaccine ( - 2023-2 5 season) 2023 Influenza Vaccine (#1) 2023 Dental Oral Exam 08/22/2024 02/21/2024, 12/16/2021 Dental Prophylaxis 08/29/2024 02/29/2024 Dental X-Ray: Bitewings 02/21/2025 02/21/20 24, 12/16/2021 Tobacco Screening 02/28/2025 02/29/2024 Dental X-Ray: Full Mouth 02/21/2027 024, 08/19/2023, 10/07/2021 Zoster Vaccines (1 of 2) 09/12/2033 RSV Patients and Patients Aged 60 years or older (1 - 1-dose 75+ series) 09/12/2058 Hepatitis A Vaccines Aged Out 01/17/2018 No long er eligible based on patient's age to complete this topic HIB Vaccines Aged Out No longer eligi ble based on patient's age to complete this topic HPV Vaccines Aged Out No longer eligi ble based on patient's age to complete this topic IPV Vaccines Aged Out No longer eligi ble based on patient's age to complete this topic Meningococcal Vaccine Aged Out No bee jeremy eligible based on patient's age to complete this topic RSV under 20 months Aged Out No longe r eligible based on patient's age to complete this topic Rotavirus Vaccines Aged Out No longer eligible based on patient's age to complete this topic Procedures Procedure Name Priority Date/Time Associated Diagnosis Comments PROPHYLAXIS - ADULT Routine 02/29/2024 9 :00 AM EST Chronic periodontitis Dental calculus Missing teeth, acquired Tooth sensitivity to cold Tooth sensitivity to heat DIAGNOSTIC - DIAGNOSTIC IMAGING - INTRAORAL - COMPREHENSIVE SERIES OF RADIOGRAPHIC IMAGES Routine 02/21/2024 8:00 AM EDT PERIODIC ORAL EVALUATION - ESTABLISHED PATIENT Routine 02/21/2024 8:00 AM EDT from Last 3 Months or Most Recently Relevant to Health Maintenance Insurance [facility] MEDICAID STAND ADULT
== END 2024-06-06 13:18 | disposition home or self-care (01) ==
PROVIDERS: PCP Internal Medicine; Visit Provider Internal Medicine
DX: Z00.00 Encounter for general adult medical examination without abnormal findings (principal); F33.1 Major depressive disorder, recurrent, moderate; I82.402 Acute embolism and thrombosis of unspecified deep veins of left lower extremity; F11.20 Opioid dependence, uncomplicated; I89.0 Lymphedema, not elsewhere classified; Z23 Encounter for immunization

== ENCOUNTER → 2024-06-06 12:22 | Outpatient (BNVA) | payer OTHER, SELFPAY | PROVIDERS: PCP Internal Medicine; Visit Provider Internal Medicine | DX: Z00.01 Encounter for general adult medical examination with abnormal findings (principal); Z23 Encounter for immunization; F33.1 Major depressive disorder, recurrent, moderate; I89.0 Lymphedema, not elsewhere classified; F11.20 Opioid dependence, uncomplicated; I82.402 Acute embolism and thrombosis of unspecified deep veins of left lower extremity | CPT/HCPCS: 90471; 90715; 96127; 99212; 99396 ==

== ENCOUNTER 2024-07-05 08:58 | Outpatient (REF) | payer OTHER, SELFPAY ==
[2024-07-05 09:12] LABS: MANUAL DIFF FLAG NO
--- OUTSIDE RECORDS SUMMARY | 2024-07-05 09:35 | XMS_ITS | Clinical Summary ---
Author Organization [employer] Address [address] [place] [address] Care Team Providers Care Psychiatry Instructor Name Role Phone Unavailable Primary Care Provider [...] sensitivity to cold Tooth sensitivity to heat INTRAORAL - COMPLETE SERIES OF RADIOGRAPHIC IMAGES Routine 02/21/2024 8:00 AM EDT PERIODIC ORAL EVALUATION - ESTABLISHED PATIENT Routine 02/21/2024 8:00 AM EDT from Last 3 Months or Most Recently Relevant to Health Maintenance Insurance [facility]AL-[facility] MEDICAID STAND ADULT
[2024-07-05 09:53] LABS: Basophils Percent Auto 0.3 % (0-2); Eosinophils Absolute Auto 0.4 X10*3/uL (0.0-0.4); Eosinophils Percent Auto 5.4 % (0-4); Imm Gran Abs Auto 0.01 X10*3/uL (0.00-0.03); Imm Gran Pct Auto 0.2 % (0.0-0.4); Lymphocytes Percent Auto 30.2 % (20-40); Mean Corpuscular HGB Conc 35.7 g/dl (31.0-36.0); Mean Corpuscular Hemoglobin 28.6 pg (27.0-33.0); Mean Corpuscular Volume 80.2 fL (80.0-98.0); Mean Platelet Volume 9.4 fL (9.4-12.4); Monocytes Absolute Auto 0.5 X10*3/uL (0.1-1.2); Monocytes Percent Auto 8.2 % (2-11); Neutrophils Absolute Auto 3.6 x10*3/uL (2.0-8.3); Neutrophils Percent Auto 55.7 % (45-73); Platelet Count 240 X10*3/uL (160-400); Red Blood Count 5.24 X10*6/uL (4.60-5.80); Red Cell Distribution Width 13.5 % (11.0-16.0); White Blood Count 6.5 X10*3/uL (4.8-10.8)
[2024-07-05 10:32] LABS: Alanine Aminotransferase 29 U/L (0-40); Albumin Level 4.3 g/dL (3.5-5.0); Alkaline Phosphatase 85 U/L (39-117); Anion Gap 12 (12-20); Aspartate Amino Transferase 31 U/L (5-37); Bilirubin Total 0.9 mg/dL (0.0-1.0); Blood Urea Nitrogen 10 mg/dL (9-16); Calcium 9.3 mg/dL (8.4-10.2); Carbon Dioxide 25 mmol/L (22-29); Chloride 106 mmol/L (96-108); Estimated Glomerular Filt Rate > 60; Glucose Fasting 101 mg/dL (60-99); Potassium 3.9 mmol/L (3.3-5.1); Sodium 139 mmol/L (135-145); Total Protein 8.3 g/dL (6.5-8.0)
[2024-07-05 10:56] LABS: Vitamin D 25-OH Total 25.4 ng/mL (>30)
[2024-07-05 10:59] LABS: Folate 14.1 ng/mL (> or = 4.0); Vitamin B12 629 pg/mL (200-900)
== END 2024-07-05 08:59 | disposition home or self-care (01) ==
LOC: HO.LAB 08:58
PROVIDERS: PCP Internal Medicine; Visit Provider Internal Medicine
DX: E53.8 Deficiency of other specified B group vitamins (principal); Z00.00 Encounter for general adult medical examination without abnormal findings; E55.9 Vitamin D deficiency, unspecified
CPT/HCPCS: 36415; 80053; 82306; 82607; 82746; 85025

== ENCOUNTER 2024-07-25 17:01 | Outpatient (AMB) | payer OTHER, SELFPAY ==
[2024-07-25 17:09] VITALS: BP 120/86; BMI 30.4
--- NOTE | 2024-07-25 17:09 | A.OFFPC_ITS ---
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: No Accompanied by: Self / Same As Patient Allergies diphenhydramine [From BENADRYL] Allergy (Intermediate, Verified 07/25/24 17:13) HIVES morphine [MORPHINE] Allergy (Intermediate, Verified 07/25/24 17:13) BURNING Medication List - Last Reconciled 07/25/24 by Rianna Morrissey MD albuterol sulfate 90 mcg/actuation 2 puffs inhalation Q6H PRN 30 days apixaban (Eliquis) 5 mg PO BID 90 days clonidine HCl mg PO [compression stockings As directed] methadone 70 mg PO DAILY omeprazole TOME 1 CAPSULA POR VIA ORAL DAILY FOR 90 DAYS sertraline mg PO DAILY Tobacco use date assessed: 06/06/24 Dental Screening Dental Screen Date: 06/06/24 HPI HPI Comments History of Present Illness Details The patient is a 38-year-old male presenting with persistent left chest pain and hand paresthesias affecting daily function and sleep. The patient describes chest pain as vein-like and constant, reporting no triggers with chest pain evaluations, including a stress test. He suffers from bilateral hand weakness and numbness due to carpal tunnel syndrome, experiencing difficulty in hand function, and possibly disturbed sleep. Current assessments have indicated vitamin D deficiency contributing to fatigue and daytime sleepiness, these symptoms corroborating with his reported sensation of a throat blockage, making swallowing difficult. Chronic left leg pain described as cramping aggravating daily activities persists without known inciting factors. Treatment and management of anxiety and depression symptoms through sertraline remain critical. The patient utilizes additional medications, though relays an acknowledged allergic reaction to Benadryl and is engaged in prior electrocardiogram evaluations for his condition. [facility] Medical History (Updated 07/25/24 @ 17:58 by Rianna Morrissey MD) Severe major depression without psychotic features DVT (deep venous thrombosis) Asthma Gastritis Moderate recurrent major depression Varicose veins of bilateral lower extremities with pain Abdominal pain Overweight Constipation due to pain medication Difficulty swallowing Hepatitis C Depression with anxiety GERD (gastroesophageal reflux disease) Methadone use Surgical History History of esophagogastroduodenoscopy (EGD) Family History Father Medical history unknown Mother Diabetes Mental health disorder Substance use disorder Maternal Grandmother Hypertension Maternal Grandfather No problems noted. Brother No problems noted. Brother No problems noted. Sister No problems noted. Sister No problems noted. Daughter No problems noted. Other No family history of cancer Social History Household Members: None Housing: Apartment Are you a primary care team coordinator scheduler to a significant other at home: No Do you presently have visiting nurse or other home services: No Alcohol intake: former Patient Tobacco Use Status: Current everyday Tobacco user Tobacco use type: Cigarette Cigarettes Per Day: 5 e-Cigarette/Vaping Use: Never Used Second Hand Smoke Exposure: No service: No Current occupational status: disabled Cognitive needs: No Hearing needs: No Vision needs: No Questionnaire Thrive Questionnaire Date Thrive assessed: 06/06/24 I am a: Patient What is your living situation today?: I choose not to answer this question Within the past 12 months, did the food you bought not last and you didn't have the money to get more?: I choose not to answer this question Within the past 12 months, did you worry whether your food would run out before you got money to buy more?: Sometimes True Do you have trouble paying for medicines?: I choose not to answer this question Do you have trouble getting transportation to medical appointments?: I choose not to answer this question Do you have trouble paying your heating and electricity bill?: Yes Do you have trouble taking care of your child, family member or friend?: No Do you have trouble with day-to-day activities such as bathing, preparing meals, shopping, managing finances, etc.?: Yes Are you currently unemployed and looking for a job?: I choose not to answer this question Are you interested in more education?: I choose not to answer this question Currently or been in a relationship where the following occur: I choose not to answer THRIVE Score: 2 ESTEFANIA-7 AMB Questionnaire ESTEFANIA-7 Date ESTEFANIA - 7 assessed: 06/06/24 Source: Developed by Drs. Sae Diaz, Domitila LentzAaron and colleagues, with an educational faiza from [employer]. Review of Systems Const All systems reviewed & are unremarkable except as noted in HPI and below Card Denies chest pain at rest, Denies chest pain with activity, Denies edema, Denies irregular heart rhythm, Denies claudication, Denies dyspnea, Denies dyspnea on exertion, Denies orthopnea, Denies paroxysmal nocturnal dyspnea and Denies slow heart rate Resp Denies cough, Denies dyspnea and Denies dyspnea on exertion GI Denies abdominal pain, Denies change in bowel habits, Denies excessive flatus, Denies nausea and Denies vomiting Denies urinary hesitancy, Denies urinary incontinence and Denies urinary urgency Musc Denies atrophy, Denies deformity and Denies limited range of motion Skin/Breast Denies bleeding lesions, Denies changing lesions and Denies rash Physical exam (Primary Care) Vital Signs: Last Vital Signs BP 120/86 07/25/24 17:09 BMI result Body Mass Index 30.4 Tobacco/Smoking Status: Tobacco use Status Tobacco use date assessed 06/06/24 07/25/24 17:12 Patient Tobacco Use Status Current everyday Tobacco 07/25/24 17:12 Tobacco use type Cigarette 07/25/24 17:12 e-Cigarette/Vaping Use Never Used 07/25/24 17:12 Thrive Assessment: Date of Thrive Assessment Date Thrive assessed 06/06/24 07/25/24 17:12 Currently or been in a relationship where the following occur: I choose not to answer Resp Effort & Inspection: normal respiratory effort Auscultation: clear to auscultation bilaterally Cardio Jugular venous distension: no JVD Rate: regular rate Rhythm: regular rhythm Heart sounds: S1 normal heart sound present and S2 normal heart sound present Extrem General: Yes full ROM Coding Level of Care Code Est Pt Level 4 (18484) Complex EM visit Add On G2211 Diagnoses Moderate recurrent major depression F33.1 Chest pain R07.9 Left hand pain M79.642 Right hand pain M79.641 Anxiety F41.9 Time Spent (min) 21 Assessment & Plan Assessment & Plan (1) Moderate recurrent major depression: Code(s): F33.1 - Major depressive disorder, recurrent, moderate Category: Medical (2) Chest pain: Code(s): R07.9 - Chest pain, unspecified Category: Medical (3) Left hand pain: Code(s): M79.642 - Pain in left hand Category: Medical (4) Right hand pain: Code(s): M79.641 - Pain in right hand Category: Medical (5) Anxiety: Code(s): F41.9 - Anxiety disorder, unspecified Category: Medical Plan For the patient's carpal tunnel syndrome, I recommend further neurological assessment and interim hand therapy. An electrocardiogram will be arranged for persistent left chest pain evaluation despite previous normal stress testing. To rectify his vitamin D deficiency-induced fatigue, initiating vitamin D supplementation is suggested. The management of anxiety and depression remains critical through continued sertraline usage, subscribing to any plausible psychiatrist-led therapy modifications. GERD symptoms are presently controlled on prescribed omeprazole. Inclusion of physical therapy for leg pain and mobility aid exploration was considered, while all allergic reactions, especially to Benadryl, should be prevented. Patient was informed and verbally consented to the use of an ambient scribe for clinic note documentation during this visit. I discussed possible non-cardiac origins for his chest pain, with an EKG being necessary to rule out any heart concerns given the ongoing symptoms despite past normal stress test results. For navigating his carpal tunnel syndrome-related difficulties, I advised specialized hand therapy. Highlights included the potential hereto of vitamin D supplementation to offset fatigue, outlining symptom relief prospects. Addressing chronic leg pain, physical therapy evaluations were recommended, ensuring informed consent herewith was provided. In reviewing anxiety and depression, the therapy continuity under sertraline was emphasized, interacting with psychiatric oversight. The importance of medication adherence and lifestyle modifications relating to GERD treatment was reiterated, committing to patient-centered care principles. Orders: Orders XR hand RT 2V Today M79.641 - Pain in right hand XR hand LT 2V Today M79.642 - Pain in left hand ECG 12 lead EKG Today R07.9 - Chest pain, unspecified Medications: New cholecalciferol (vitamin D3) 25 mcg PO DAILY 90 caps 1RF 90 days Patient Instructions: - Schedule an electrocardiogram for further evaluation of chest pain. - Begin vitamin D supplementation as advised. - Continue taking sertraline for anxiety and depression as prescribed by your psychiatrist. - Avoid using Benadryl due to reported allergies. - Arrange for occupational therapy focused on hand exercises to address carpal tunnel syndrome. - Attend physical therapy sessions to help manage left leg pain. - Report any new or worsening symptoms promptly for reassessment. - Follow up as directed for medication and therapy adherence.
--- OUTSIDE RECORDS SUMMARY | 2024-07-25 18:58 | XMS_ITS | Clinical Summary ---
Author Organization [employer] Address [address] [place] [address] Care Team Providers Care Typing Checker Name Role Phone Unavailable Primary Care Provider [...] Most Recently Relevant to Health Maintenance Insurance [facility] MEDICAID STAND ADULT
== END 2024-07-25 17:21 | disposition home or self-care (01) ==
LOC: HO.HMCH 17:02
PROVIDERS: PCP Internal Medicine; Visit Provider Internal Medicine
DX: F33.1 Major depressive disorder, recurrent, moderate (principal); R07.9 Chest pain, unspecified; M79.642 Pain in left hand; M79.641 Pain in right hand; F41.9 Anxiety disorder, unspecified

== ENCOUNTER → 2024-07-25 17:01 | Outpatient (BNVA) | payer OTHER, SELFPAY | PROVIDERS: PCP Internal Medicine; Visit Provider Internal Medicine | DX: F33.1 Major depressive disorder, recurrent, moderate (principal); R07.9 Chest pain, unspecified; M79.642 Pain in left hand; M79.641 Pain in right hand; F41.9 Anxiety disorder, unspecified | CPT/HCPCS: 99212 ==

== ENCOUNTER 2024-11-01 11:08 | Outpatient (AMB) | payer OTHER, SELFPAY ==
--- NOTE | 2024-11-01 11:47 | A.OFFVIS_ITS ---
Vital Signs 11/01/24 11:51 Height 5 ft 11 in Weight 218 lb 4.122 oz BMI 30.4 BP 109/75 Blood Pressure Location Lt brachial Position Sitting Pulse 80 Intake Visit Reasons: 1 yr f/u r/s 09/29/24 Intake Note: Martin presents in the office as a 1 year follow up. CC: constipation, some nausea and acid reflux. Accounts Administrator Required: Yes Allergies diphenhydramine (From BENADRYL) Allergy (Intermediate, Verified 11/01/24 11:52) HIVES morphine (MORPHINE) Allergy (Intermediate, Verified 11/01/24 11:52) BURNING HPI Comments Details: This is a 36-year-old gentleman with past medical history of chronic hepatitis-C (tx with mavyret 2018 but nonadherent), previous IV drug use currently on methadone, who is presenting for 12-week follow-up after starting Vesovi. He just completed 12 weeks of Vosevi on 04/03. Labs reviewed with the patient, normal Hb and LFTs. Viral load NEGATIVE. Main complaint today is RUQ abd pain that comes and goes, feels like a sharp cramp. Notices it with constipation, pain gets worse when he is straining to have a BM and gets better when he has passed a BM. Used to happen occasionally in the past but has been bothering him more in the past few days. Otherwise, no nausea, vomiting or changes in appetite. Intermittent globus sensation unchanged and not progressed. Reports no further IVDU, last usage in December 2021. Was recently diagnosed with LLE DVT. Is on Eliquis. Follows with Dr Clark. Reports significant improvement in his swelling, now able to walk, albeit with the help of a cane. Denies any shortness of breath, chest pain, palpitations. Reminded to HOLD eliquis for 2 days prior to his upcoming EGD. 08/23/23: Was lost to follow up. Returns due to abnormal UGIS. 1. Small type I hiatal hernia 2. Significant gastroesophageal reflux 3. Thickened gastric rugal folds. In addition, there are multiple tiny areas of contrast pooling in the fundus and body the stomach. These findings are suggestive of erosive gastritis. Recommend correlation with EGD. This was done to explore pt's report of sensation of Something stuck in the left side of his throat leading to frequent throat clearing. Otherwise no nausea,vomiting abd pain. Weight curve stable. To recall, EGD was booked for pt x2 in 2021 as well for similar complaints but c anceled due to active IVDU fentanyl. Pt also remains on eliquis for DVT. Appears to be lost to follow up in Hematology's office. Missed 05/2023 appt with Hematology. 09/16/23: * UES stenosis (dilation) * Irregular Z line (biopsy) * Gastritis (biopsy) * Normal duodenum (biopsy) Path: Diagnosis A. Duodenum, biopsy: Duodenal mucosa with preserved villi and no specific change. B. Stomach, random, biopsy: Chronic gastritis with focal mild activity; negative for H pylori, intestinal metaplasia and dysplasia. C. Gastroesophageal junction, biopsy: Squamous mucosa with hyperplasia and focal intraepithelial neutrophils consistent with esophagitis, and columnar mucosa with moderate chronic active inflammation and focal intestinal metaplasia; negative for dysplasia (see comment). 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 Clinical and endoscopic correlation is advised. 10/01/23: Here for follow up to receive results of EGD. ? BE although was in a background esophagitis. No HP on gastric biopsies. Reports improvement in swallowing. Continues on omeprazole 20 once daily. Main issue today is intermittent constipation. To recall pt on methadone maintenance. Was also occ using on top of that but reports complete abstinence the last 3 months. 11/01/24: Here for follow up. Reports significant mucus and phlegm taj in the morning. Has to cough it up. Also reports constipation. Has lower abd pain with this. Occurs at least 2-3 times a month. With this he has urge to defecate but the stool is hard, has to splint. Stools are small hard cecilio. Reports ran out of miralax and fiber almost 4 months ago and has not refilled. [facility] Medical History Severe major depression without psychotic features DVT (deep venous thrombosis) Asthma Gastritis Moderate recurrent major depression Varicose veins of bilateral lower extremities with pain Abdominal pain Overweight Constipation due to pain medication Difficulty swallowing Hepatitis C Depression with anxiety GERD (gastroesophageal reflux disease) Methadone use Surgical History History of esophagogastroduodenoscopy (EGD) Family History Father Medical history unknown Mother Diabetes Mental health disorder Substance use disorder Maternal Grandmother Hypertension Maternal Grandfather No problems noted. Brother No problems noted. Brother No problems noted. Sister No problems noted. Sister No problems noted. Daughter No problems noted. Other No family history of cancer Social History Household Members: None Housing: Apartment Are you a primary career discovery teacher to a significant other at home: No Do you presently have visiting nurse or other home services: No Alcohol intake: former Patient Tobacco Use Status: Current everyday Tobacco user Tobacco use type: Cigarette Cigarettes Per Day: 5 e-Cigarette/Vaping Use: Never Used Second Hand Smoke Exposure: No service: No Current occupational status: disabled Cognitive needs: No Hearing needs: No Vision needs: No Review of Systems Const All systems reviewed & are unremarkable except as noted in HPI and below Physical Exam Vital Signs: Last Vital Signs Pulse 80 11/01/24 11:51 BP 109/75 11/01/24 11:51 BMI result Body Mass Index 30.4 No apparent distress Nonicteric Abdomen soft, nondistended Alert and oriented x3, uses cane Assessment & Plan Assessment & Plan (1) Post-nasal drip: Code(s): R09.82 - Postnasal drip Category: Medical (2) Constipation due to pain medication: Comment: Methadone 60 mg daily likely cause constipation increase fiber, Colace MiraLax regimen Code(s): K59.03 - Drug induced constipation Category: Medical Plan 1. Sx consistent with post nasal discharge. Advised to use saline spray as mucolytic and take OTC anti histamine. if sx persist, should discuss further with PCP - may need steroid nasal spray. 2. constipation - was previously well controlled on daily fiber, was only taking PRN miralax. Ran out of both meds. Will resume same regimen. Pt reminded to call office for timely refills. Follow up 1 year. Medications: New polyethylene glycol 3350 (Miralax) HOLD for loose stools 17 grams PO DAILY 510 grams 1RF 30 days psyllium husk (Fiber (psyllium husk)) 1.04 grams (2 x 0.52 gram) PO DAILY 60 caps 1RF sodium chloride 3% (Saline Nasal Mist) 1 spray intranasal BID 126 mL 1RF post nasal drip 90 days Coding Level of Care Code Est Pt Level 3 (77021) Diagnoses Post-nasal drip R09.82 Constipation due to pain medication K59.03
[2024-11-01 11:51] VITALS: BP 109/75; PULSE 80; BMI 30.4
--- OUTSIDE RECORDS SUMMARY | 2024-11-01 12:22 | XMS_ITS | Clinical Summary ---
Author Organization [employer] [facility] Address [address] [place] [address] Care Team Providers Care Advertising Campaign Manager Name Role Phone Unavailable Primary Care Provider [...] times daily. 1 g 3 4 Active Sodium Fluoride (PreviDent 5000 Plus) 1.1 % cream Apply 1 mg to teeth 3 times daily. 1 g 3 5 Active Active Problems Problem Noted Date Diagnosed Date Dental calculus 02/29/2024 Dental caries 02/29/2024 Missing teeth, acquired 02/29/2024 Tooth sensitivity to cold 02/29/2024 Tooth sensitivity to heat 02/29/2024 Retained dental root 01/31/2024 Severe dental caries 10/11/2023 Chronic periodontitis 10/11/2023 Divergence of root of tooth 10/11/2023 Encounters Date Type Department Care Team Description 10/13/2024 1:30 PM EDT Office Visit [facility] [address] [place] [address] Isis Oreilly DDS Chronic periodontitis (Primary Dx); Dental caries 09/11/2024 2:30 PM EDT Office Visit [facility] [address] [place] [address] Isis Oreilly DDS Dental caries (Primary Dx) from Last 3 Months Social History Tobacco Use Types Packs/Day Years [...] Mass Index - - Plan of Treatment Upcoming Encounters Date Type Department Care Team (Late st Contact Info) Description 11/16/2024 10:30 AM EDT Office Visit [facility] [address] [place] [address] Kyrie Joseph DDS [address] [place] [address] Health Maintenance Due Date Last Done Comments Depression Screening 1983 HIV Screening 1983 Lipid Panel 1983 SDOH Screening 1983 Disability Screening 1983 Alcohol/Substance Use Screening 1995 Family Planning (PISQ) 09/12/1998 HPV Vaccines (1 - 3-dose series) 09/12/1998 Hepatitis C Screening 09/12/2001 Hepatitis B Vaccines (1 of 3 - 19+ 3-dose series) 09/12/2002 Pneumococcal Vaccine: Pediatrics (0 to 5 Years) and At-Risk Patients (6 to 49) Years (1 of 2 - PCV) 09/12/2002 COVID-19 Vaccine ( - 2023-2 5 season) 2023 Dental Oral Exam 08/22/2024 02/21/2024, 12/16/2021 Dental Prophylaxis 08/29/2024 02/29/2024 Influenza Vaccine (#1) 2024 Dental X-Ray: Bitewings 02/21/2025 02/21/20 24, 12/16/2021 Tobacco Screening 09/11/2025 09/11/2024 Dental X-Ray: Full Mouth 02/21/2027 024, 08/19/2023, 10/07/2021 Zoster Vaccines (1 of 2) 09/12/2033 DTaP/Tdap/Td Vaccines (2 - T d or Tdap) 06/06/2034 06/06/2024 RSV Patients and Patients Aged 60 years or older (1 - 1-dose 75+ series) 09/12/2058 HIB Vaccines Aged Out No longer eligi ble based on patient's age to complete this topic Hepatitis A Vaccines Aged Out No long er eligible based on patient's age to complete this topic IPV Vaccines Aged Out No longer eligi ble based on patient's age to complete this topic Meningococcal B Vaccine Aged Out No l onger eligible based on patient's age to complete [...] Procedure Name Priority Date/Time Associated Diagnosis Comments CASE PRESENTATION, DETAILED AND EXTENSIVE TREATMENT PLANNING Routine 10/13/2024 1:30 PM EDT Chronic periodontitis Dental caries 28 MDBB(V) RESIN-BASED COMPOSITE - 3 SURF, POSTERIOR Routine 10/13/2024 1:30 PM EDT Chronic periodontitis Dental caries 29 MB(V) RESIN-BASED COMPOSITE - 2 SURF, POSTERIOR Routine 10/13/2024 1:30 PM EDT Chronic periodontitis Dental caries CASE PRESENTATION, DETAILED AND EXTENSIVE TREATMENT PLANNING Routine 09/11/2024 2:30 PM EDT Dental caries 9 MLL(V) RESIN-BASED COMPOSITE - 2 SURF, ANTERIOR Routine 09/11/2024 2:30 PM EDT Dental caries 8 MLL(V) RESIN-BASED COMPOSITE - 2 SURF, ANTERIOR Routine 09/11/2024 2:30 PM EDT Dental caries PROPHYLAXIS - ADULT Routine 02/29/2024 9 :00 AM EST Chronic periodontitis Dental calculus Missing teeth, acquired Tooth sensitivity to cold Tooth sensitivity to heat INTRAORAL - COMPLETE SERIES OF RADIOGRAPHIC IMAGES Routine 02/21/2024 8:00 AM EDT PERIODIC ORAL EVALUATION - ESTABLISHED PATIENT Routine 02/21/2024 8:00 AM EDT from Last 3 Months or Most Recently Relevant to Health Maintenance Insurance [facility] MEDICAID STAND ADULT
== END 2024-11-01 12:34 | disposition home or self-care (01) ==
LOC: HO.HGI 11:09
PROVIDERS: PCP Internal Medicine; Visit Provider Internal Medicine
DX: R09.82 Postnasal drip (principal); K59.03 Drug induced constipation
CPT/HCPCS: 99213

== ENCOUNTER → 2024-11-01 11:08 | Outpatient (BNVA) | payer OTHER, SELFPAY | PROVIDERS: PCP Internal Medicine; Visit Provider Internal Medicine | DX: R10.11 Right upper quadrant pain (principal); K59.03 Drug induced constipation; R09.82 Postnasal drip | CPT/HCPCS: 99212 ==

== ENCOUNTER 2024-12-20 11:25 | Outpatient (AMB) | payer OTHER, SELFPAY ==
--- NOTE | 2024-12-20 11:26 | A.OFFPC_ITS ---
Vital Signs 12/20/24 11:33 Height 5 ft 11 in Weight 220 lb 8 oz BMI 30.8 BP 122/70 Blood Pressure Location Lt brachial Position Sitting Respiration 12 Pulse 90 Pulse Source Pulse Oximeter Temp 97.2 F Temp Source Oral Pulse Oximetry (%) 95 Oxygen Delivery Method Room Air Intake Visit Reasons: asthma/wheezing/coughing Intake Note: Patient c/o coughing, wheezing, sob when coughing, headache when coughing, itchy right side of the throat and chest pressure x 1 month. Principal Engineer Required: No Allergies diphenhydramine (From BENADRYL) Allergy (Intermediate, Verified 12/20/24 11:27) HIVES morphine (MORPHINE) Allergy (Intermediate, Verified 12/20/24 11:27) BURNING Medication List - Last Reconciled 12/20/24 by BERTHA Watkins- albuterol sulfate 90 mcg/actuation 2 puffs inhalation Q6H PRN 30 days apixaban (Eliquis) 5 mg PO BID 90 days cane As directed cholecalciferol (vitamin D3) 25 mcg PO DAILY 90 days clonidine HCl mg PO [compression stockings As directed] methadone 70 mg PO DAILY omeprazole TOME 1 CAPSULA POR VIA ORAL DAILY FOR 90 DAYS polyethylene glycol 3350 (Miralax) 17 grams PO DAILY 30 days psyllium husk (Fiber (psyllium husk)) 1.04 grams (2 x 0.52 gram) PO DAILY 90 days sertraline mg PO DAILY sodium chloride 3% (Saline Nasal Mist) 1 spray intranasal BID 90 days Tobacco use date assessed: 12/20/24 Dental Screening Dental Screen Date: 12/20/24 Did you have a dental visit in the last 12 months?: Yes Did you have a dental problem in the last 6 months where you did not have access to dental care?: No Was dental information given to patient?: Patient has dentist HPI HPI Comments History of Present Illness Details History of Present Illness - The patient is a 39-year-old male with hx of DVT on eliquis presenting with asthma exacerbation. - Symptoms: Uncontrolled asthma for one month with wheezing, cough, thick mucous and nasal congestion - Management: Current inhaler ineffectiv e, difficulty managing symptoms. Has run out of CHAN. - No current fever. Reports chest pressu re while coughing. - Experiencing nausea d/t mucous. - Taking eliquis as directed. Review of Systems - Respiratory: Reports wheezing and coug h, difficulty managing asthma symptoms, and chest pressure. - Gastrointestinal: Reports nausea. - General: Denies significant fever. Physical Exam General: Well developed, well nourished, in no acute distress. Appears stated age. Accompanied by Head: Normocephalic, atraumatic. Eyes: Pupils are equal, round and reactive to light and accommodation. Conjunctivae are clear. Ears: cerumen R EAC unable to see TM; Left TM intact and clear Nose: Mild purulent d/c bilat, turbinates wnl, no sinus tenderness w/ palp Pharynx: + PND, no ac adenopathy Lungs: Ins/exp wheezes throughout, mild cough, no distress Heart: Regular rate and rhythm. No murmurs, click, rubs or gallops are noted. Psych: Mood and affect appropriate Discussion Notes I discussed with the patient the treatment options for his asthma exacerbation, focusing on the benefits of using both a maintenance inhaler and a rescue inhaler. I emphasized the importance of adhering to a strict regimen with the newly prescribed inhaler, recommended to be used four times daily. I also explained the role of oral prednisone in reducing inflammation and easing symptoms. We discussed the temporary nature of these treatments to manage the current exacerbation and reassured him that the inhalers will assist in stabilizing his symptoms. The plan includes arranging prescriptions to be filled at his preferred pharmacy. Patient was given time to ask questions. All questions were answered to their satisfaction. Assessment and Plan 1. Asthma exacerbation - Combivent inhaler prescribed; use four times daily. - Prescribed prednisone x 5 days, take w / food. - Refill provided for rescue inhaler; us e as needed per symptoms. - RTO or seek additional care if sx wors en or do not resolve. Patient Instructions - Use the new inhaler four times a day. - Take prednisone as prescribed. - Use the rescue inhaler as needed if sy mptoms worsen. - Follow up if symptoms do not improve o r if they worsen. Consent Patient was informed and verbally consented to the use of an ambient scribe for clinic note documentation during this visit. Total time spent caring for the patient today was 30 minutes. This includes time spent before the visit reviewing the chart, time spent during the visit, and time spent after the visit on documentation, reviewing laboratory results, diagnostic imaging, medications, performing a medically necessary evaluation, counseling on diagnoses, care coordination, ordering appropriate tests, ordering appropriate medications, review of tests performed by other providers, reporting test results with the patient, communication with other healthcare providers. [facility] Medical History Severe major depression without psychotic features DVT (deep venous thrombosis) Asthma Gastritis Moderate recurrent major depression Varicose veins of bilateral lower extremities with pain Abdominal pain Overweight Constipation due to pain medication Difficulty swallowing Hepatitis C Depression with anxiety GERD (gastroesophageal reflux disease) Methadone use Surgical History History of esophagogastroduodenoscopy (EGD) Family History Father Medical history unknown Mother Diabetes Mental health disorder Substance use disorder Maternal Grandmother Hypertension Maternal Grandfather No problems noted. Brother No problems noted. Brother No problems noted. Sister No problems noted. Sister No problems noted. Daughter No problems noted. Other No family history of cancer Social History Household Members: None Housing: Apartment Are you a primary day care center director to a significant other at home: No Do you presently have visiting nurse or other home services: No Alcohol intake: former Patient Tobacco Use Status: Current everyday Tobacco user Tobacco use type: Cigarette Cigarettes Per Day: 5 e-Cigarette/Vaping Use: Never Used Second Hand Smoke Exposure: No service: No Current occupational status: disabled Cognitive needs: No Hearing needs: No Vision needs: No Questionnaire Thrive Questionnaire Date Thrive assessed: 06/06/24 ESTEFANIA-7 AMB Questionnaire ESTEFANIA-7 Date ESTEFANIA - 7 assessed: 06/06/24 Source: Developed by Drs. Sae Diaz, Domitila Lentz, Aaron Jesus and colleagues, with an educational faiza from [employer]. ACT Questionnaire In the past 4 weeks, how much of the time did your asthma keep you from getting as much done at work, school or at home?: All of the time During the past 4 weeks, how often have you had shortness of breath?: More than once a day During the past 4 weeks, how often did your asthma symptoms wake you up at night or earlier than usual in the morning?: 4 or more nights a week During the past 4 weeks, how often have you had to use your rescue inhaler or nebulizer medication?: More than 3 times per day How would you rate your asthma control during the past 4 weeks?: Not controlled at all ACT Interpretation: Positive ACT Branch: New medication Score: 5 Physical exam (Primary Care) Vital Signs: Last Vital Signs Temp 97.2 F 12/20/24 11:33 Pulse 90 12/20/24 11:33 Resp 12 12/20/24 11:33 BP 122/70 12/20/24 11:33 Pulse Ox 95 12/20/24 11:33 Oxygen Delivery Method Room Air 12/20/24 11:33 BMI result Body Mass Index 30.8 Tobacco/Smoking Status: Tobacco use Status Tobacco use date assessed 12/20/24 12/20/24 11:30 Patient Tobacco Use Status Current everyday Tobacco 12/20/24 11:30 Tobacco use type Cigarette 12/20/24 11:30 e-Cigarette/Vaping Use Never Used 12/20/24 11:30 Thrive Assessment: Date of Thrive Assessment Date Thrive assessed 06/06/24 12/20/24 11:30 Coding Level of Care Code Est Pt Level 4 (33949) Complex EM visit Add On G2211 Diagnoses Mild intermittent asthma with exacerbation J45.21 Asthma severity: mild Asthma persistence: intermittent Viral URI with cough J06.9 Anticoagulant long-term use Z79.01 Additional Codes Asthma Control Questionnaire - ACT Interpretation: Positive ([id number]) Assessment & Plan Assessment & Plan (1) Asthma exacerbation: Code(s): J45.901 - Unspecified asthma with (acute) exacerbation Category: Medical Qualifiers: Asthma severity: mild Asthma persistence: intermittent Qualified Code(s): J45.21 - Mild intermittent asthma with (acute) exacerbation (2) Viral URI with cough: Code(s): J06.9 - Acute upper respiratory infection, unspecified (3) Anticoagulant long-term use: Code(s): Z79.01 - assisted (current) use of anticoagulants Category: Medical Plan . Medications: New prednisone 50 mg PO DAILY 5 tabs 0RF 5 days ipratropium-albuterol 20-100 mcg/actuation (Combivent Respimat) space evenly during waking hours 1 puff inhalation QID 4 grams 0RF Changed From albuterol sulfate 90 mcg/actuation 2 puffs inhalation Q6H 30 days PRN 6.7 grams 0RF Shortness Of Breath Or Wheezing To albuterol sulfate 90 mcg/actuation 2 inhalations inhalation Q6H PRN 1 ea 1RF shortness of breath or wheezing Refilled albuterol sulfate 90 mcg/actuation 2 puffs inhalation Q6H 30 days PRN 6.7 grams 0RF Shortness Of Breath Or Wheezing Z00.00 - Encounter for general adult medical examination without abnormal findings
[2024-12-20 11:33] VITALS: BP 122/70; PULSE 90; RESP 12; TEMP 36.2; O2SAT 95; BMI 30.8
--- OUTSIDE RECORDS SUMMARY | 2024-12-20 12:21 | XMS_ITS | Clinical Summary ---
Author Organization [employer] [facility] Address [address] [place] [address] Care Team Providers Care Account Auditor Name Role Phone Unavailable Primary Care Provider [...] Description 10/13/2024 1:30 PM EDT Office Visit [facility] [address] [place] [address] Jacy-Isis Young, DDS Chronic periodontitis (Primary Dx); Dental caries from Last 3 Months Social History Tobacco [...] 1:30 PM EDT Chronic periodontitis Dental caries PROPHYLAXIS - ADULT Routine 02/29/2024 9 :00 AM EST Chronic periodontitis Dental calculus Missing teeth, acquired Tooth sensitivity to cold Tooth sensitivity to heat INTRAORAL - COMPLETE SERIES OF RADIOGRAPHIC IMAGES Routine 02/21/2024 8:00 AM EDT PERIODIC ORAL EVALUATION - ESTABLISHED PATIENT Routine 02/21/2024 8:00 AM EDT from Last 3 Months or Most Recently Relevant to Health Maintenance [facility]
== END 2024-12-20 11:51 | disposition home or self-care (01) ==
LOC: HO.HMCWIW 11:25
PROVIDERS: PCP Internal Medicine; Visit Provider Nurse Practitioner Family
DX: J45.21 Mild intermittent asthma with (acute) exacerbation (principal); J06.9 Acute upper respiratory infection, unspecified; Z79.01 Long term (current) use of anticoagulants

== ENCOUNTER → 2024-12-20 11:25 | Outpatient (BNVA) | payer OTHER, SELFPAY | PROVIDERS: PCP Internal Medicine; Visit Provider Nurse Practitioner Family | DX: J45.21 Mild intermittent asthma with (acute) exacerbation (principal); J06.9 Acute upper respiratory infection, unspecified; Z86.718 Personal history of other venous thrombosis and embolism; Z79.01 Long term (current) use of anticoagulants | CPT/HCPCS: 96160; 99212 ==

== ENCOUNTER 2025-01-11 12:36 | Outpatient (AMB) | payer OTHER, SELFPAY ==
--- NOTE | 2025-01-11 12:39 | A.OFFPC_ITS ---
Vital Signs 01/11/25 12:41 Height 5 ft 11 in Weight 219 lb 4 oz BMI 30.6 BP 118/70 Blood Pressure Location Lt brachial Position Sitting Pulse 105 H Pulse Source Pulse Oximeter Pulse Oximetry (%) 97 Oxygen Delivery Method Room Air Intake Visit Reasons: asthma exacerbation/cough Television Cabinet Finisher Required: Yes Television Cabinet Finisher Language: Turkish Accompanied by: Self / Same As Patient Allergies diphenhydramine (From BENADRYL) Allergy (Intermediate, Verified 01/11/25 12:40) HIVES morphine (MORPHINE) Allergy (Intermediate, Verified 01/11/25 12:40) BURNING Medication List - Last Reconciled 01/11/25 by Mark Pandya MD albuterol sulfate 90 mcg/actuation 2 inhalations inhalation Q6H PRN apixaban (Eliquis) 5 mg PO BID 90 days cane As directed cholecalciferol (vitamin D3) 25 mcg PO DAILY 90 days clonidine HCl mg PO [compression stockings As directed] ipratropium-albuterol 20-100 mcg/actuation (Combivent Respimat) 1 puff inhalation QID methadone 70 mg PO DAILY omeprazole TOME 1 CAPSULA POR VIA ORAL DAILY FOR 90 DAYS polyethylene glycol 3350 (Gavilax) 17 grams PO DAILY prednisone 50 mg PO DAILY 5 days psyllium husk (Fiber (psyllium husk)) 1.04 grams (2 x 0.52 gram) PO DAILY 90 days sertraline mg PO DAILY sodium chloride 3% (Saline Nasal Mist) 1 spray intranasal BID 90 days Tobacco use date assessed: 12/20/24 Dental Screening Dental Screen Date: 01/11/25 Did you have a dental visit in the last 12 months?: Yes Did you have a dental problem in the last 6 months where you did not have access to dental care?: No Was dental information given to patient?: Patient has dentist HPI HPI Comments History of Present Illness Details The patient is a 39-year-old male presenting with a chronic cough. The cough has been persistent, occurring daily, with yeallow blood tinged sputum. The patient denies any fever or chills but reports waking up at night with difficulty breathing and occasional night sweats. There is also a noted decrease in weight, which was not intentional, and coughing sometimes occurs during meals. The patient has a history of tobacco use, smoking approximately five cigarettes per day. He has not taken any antibiotics recently except for amoxicillin found at home, and he has been prescribed prednisone which help for short period of time. The patient has not traveled outside the [place] recently, with the last trip being to [place] in 2021. He denies any recent exposure to sick contacts and has tested negative for COVID-19. [facility] Medical History Severe major depression without psychotic features DVT (deep venous thrombosis) Asthma Gastritis Moderate recurrent major depression Varicose veins of bilateral lower extremities with pain Abdominal pain Overweight Constipation due to pain medication Difficulty swallowing Hepatitis C Depression with anxiety GERD (gastroesophageal reflux disease) Methadone use Surgical History History of esophagogastroduodenoscopy (EGD) Family History Father Medical history unknown Mother Diabetes Mental health disorder Substance use disorder Maternal Grandmother Hypertension Maternal Grandfather No problems noted. Brother No problems noted. Brother No problems noted. Sister No problems noted. Sister No problems noted. Daughter No problems noted. Other No family history of cancer Social History Household Members: None Housing: Apartment Are you a primary healthcare economics manager to a significant other at home: No Do you presently have visiting nurse or other home services: No Alcohol intake: former Patient Tobacco Use Status: Current everyday Tobacco user Tobacco use type: Cigarette Cigarettes Per Day: 5 e-Cigarette/Vaping Use: Never Used Second Hand Smoke Exposure: No service: No Current occupational status: disabled Cognitive needs: No Hearing needs: No Vision needs: No Questionnaire PHQ-9 Over the last 2 weeks, how often have you been bothered by any of the following problems? 2. Feeling down, depressed, or hopeless: several days 3. Trouble falling or staying asleep, or sleeping too much: several days 4. Feeling tired or having little energy: several days 5. Poor appetite or overeating: several days 6. Feeling bad about yourself - or that you are a failure or have let yourself or your family down: several days 7. Trouble concentrating on things, such as reading the newspaper or watching television: several days 8. Moving or speaking so slowly that other people could have noticed. Or the opposite - being so fidgety or restless that you have been moving around a lot more than usual: not at all 9. Thoughts that you would be better off or of hurting yourself in some way: not at all [id number] - PHQ-9 Billing: Yes Source: Developed by Drs. Sae Diaz, Domitila Lentz, Aaron Jesus and colleagues, with an educational faiza from [employer]. Thrive Questionnaire Date Thrive assessed: 06/06/24 I am a: Patient What is your living situation today?: I choose not to answer this question Within the past 12 months, did the food you bought not last and you didn't have the money to get more?: I choose not to answer this question Within the past 12 months, did you worry whether your food would run out before you got money to buy more?: Sometimes True Do you have trouble paying for medicines?: I choose not to answer this question Do you have trouble getting transportation to medical appointments?: I choose not to answer this question Do you have trouble paying your heating and electricity bill?: Yes Do you have trouble taking care of your child, family member or friend?: No Do you have trouble with day-to-day activities such as bathing, preparing meals, shopping, managing finances, etc.?: Yes Are you currently unemployed and looking for a job?: I choose not to answer this question Are you interested in more education?: I choose not to answer this question Currently or been in a relationship where the following occur: I choose not to answer THRIVE Score: 2 AUDIT C Alcohol Use Questionnaire (AUDIT-C) 1. How often do you have a drink containing alcohol?: Never Total Score: 0 ESTEFANIA-7 AMB Questionnaire ESTEFANIA-7 Date ESTEFANIA - 7 assessed: 06/06/24 Feeling nervous, anxious, or on edge: 1 = Several days Not being able to stop or control worryin = Several days Worrying too much about different things: 1 = Several days Trouble relaxin = Several days Being so restless that it is hard to sit still: 1 = Several days Becoming easily annoyed or irritable: 1 = Several days Feeling afraid as if something awful might happen: 1 = Several days Total ESTEFANIA-7 score (0-4 normal; 5-9 mild; 10-14 moderate; 15-21 severe): 7 Source: Developed by Drs. Sae Diaz, Domitila Lentz, Aaron Jesus and colleagues, with an educational faiza from [employer]. ESTEFANIA-7 Assessment Billing ESTEFANIA-7 Assessment Tool: ESTEFANIA-7 Assessment 72887 Review of Systems Const Details: Positives besides what was mentioned in HPI are in BOLD Constitutional: No Weight Change, No Fever, No Chills, No Night Sweats, No Fatigue, No Malaise ENT/Mouth: No Hearing Changes, No Ear Pain, No Nasal Congestion, No Sinus Pain, No Hoarseness, No sore throat, No Rhinorrhea, No Swallowing Difficulty Eyes: No Eye Pain, No Swelling, No Redness, No Foreign Body, No Discharge, No Vision Changes Cardiovascular: No Chest Pain, No SOB, No PND, No Dyspnea on Exertion, No Orthopnea, No Claudication, No Edema, No Palpitations Respiratory: No Cough, No Sputum, No Wheezing, No Smoke Exposure, No Dyspnea Gastrointestinal: No Nausea, No Vomiting, No Diarrhea, No Constipation, No Pain, No Heartburn, No Anorexia, No Dysphagia, No Hematochezia, No Melena, No Flatulence, No Jaundice Genitourinary: No Dysmenorrhea, No DUB, No Dyspareunia, No Dysuria, No Urinary Frequency, No Hematuria, No Urinary Incontinence, No Urgency, No Flank Pain, No Urinary Flow Changes, No Hesitancy Musculoskeletal: No Arthralgias, No Myalgias, No Joint Swelling, No Joint Stiffness, No Back Pain, No Neck Pain, No Injury History Skin: No Skin Lesions, No Pruritis, No Hair Changes, No Breast/Skin Changes, No Nipple Discharge Neuro: No Weakness, No Numbness, No Paresthesias, No Loss of Consciousness, No Syncope, No Dizziness, No Headache, No Coordination Changes, No Recent Falls Psych: No Anxiety/Panic, No Depression, No Insomnia, No Personality Changes, No Delusions, No Rumination, No SI/HI/AH/VH, No Social Issues, No Memory Changes, No Violence/Abuse Hx., No Eating Concerns Heme/Lymph: No Bruising, No Bleeding, No Transfusions History, No Lymphadenopathy Endocrine: No Polyuria, No Polydipsia, No Temperature Intolerance Physical exam (Primary Care) Vital Signs: Last Vital Signs Pulse 105 H 01/11/25 12:41 BP 118/70 01/11/25 12:41 Pulse Ox 97 01/11/25 12:41 Oxygen Delivery Method Room Air 01/11/25 12:41 BMI result Body Mass Index 30.6 Tobacco/Smoking Status: Tobacco use Status Tobacco use date assessed 12/20/24 01/11/25 12:48 Patient Tobacco Use Status Current everyday Tobacco 01/11/25 12:48 Tobacco use type Cigarette 01/11/25 12:48 e-Cigarette/Vaping Use Never Used 01/11/25 12:48 Thrive Assessment: Date of Thrive Assessment Date Thrive assessed 06/06/24 01/11/25 12:48 Currently or been in a relationship where the following occur: I choose not to answer Const Other: Pertinent findings are in BOLD GENERAL APPEARANCE NAD, activity normal for age, well developed/ well nourished, no cyanosis, pallor, or diaphoresis. EYES lids/conjunctiva normal. EARS/NOSE/THROAT Mucous membranes moist, nares normal, lips/teeth normal uvula midline without oral pharyngeal erythema, exudate or swelling TMs normal bilaterally. No lymphangitis/lymphedema. HEAD/NECK normocephalic atraumatic, no facial trauma, neck is supple. RESPIRATORY respiratory effort normal, speaks in full sentences, no tripod position, no accessory muscle use. Lungs clear to auscultation without rhonchi, wheezes, rales CARDIAC Regular rate and rhythm, no edema. ABDOMINAL Soft, ND/NT. No evidence of fluid wave. No pulsatile masses on exam, rebound tenderness, Aldrideg sign or pain over Mcburney's point. MUSCLES/EXTREMITIES No abnormal range of motion, no swelling. SKIN Warm, pink and dry. No rashes, dermatoses, petechiae or lesions. NEUROLOGICAL Speech is clear and appropriate. Normal level of consciousness. Gait and coordination are normal. 5/5 strength in all extremities. PSYCH Normal mood and affect. Judgement/competence is appropriate Coding Level of Care Code Est Pt Level 3 (56518) Diagnoses Acute cough R05.1 Cough type: acute Additional Codes ESTEFANIA-7 Assessment Billing - ESTEFANIA-7 Assessment Tool: ESTEFANIA-7 Assessment 22031 ([id number]) PHQ-9 - 48589 - PHQ-9 Billing: Yes ([id number]) Time Spent (min) 20 Assessment & Plan Assessment & Plan (1) Cough: Code(s): R05.9 - Cough, unspecified Category: Medical Qualifiers: Cough type: acute Qualified Code(s): R05.1 - Acute cough Plan: As patient's symptoms improve briefly after steroids and then got worse PNA is suspected. Amoxicillin BID for 7 days. Flonase. CXR to rule out TB as patient has unintentional weight loss and occasional night sweats. Plan I discussed with the patient the plan to obtain a chest x-ray to further investigate the cause of the chronic cough. We talked about the use of amoxicillin for seven days to treat a potential infection and the previous use of prednisone for symptomatic relief. I advised the patient on the benefits of smoking cessation to improve respiratory health. Orders: Orders XR chest 2V Today J18.9 - Pneumonia, unspecified organism Medications: New amoxicillin 500 mg PO BID 14 caps 0RF 7 days fluticasone furoate 27.5 mcg/actuation (Flonase Sensimist) into each nostril 1 spray intranasal DAILY 18.2 mL 0RF 1 month Refilled albuterol sulfate 90 mcg/actuation 2 inhalations inhalation Q6H PRN 1 ea 1RF shortness of breath or wheezing
[2025-01-11 12:41] VITALS: BP 118/70; PULSE 105; O2SAT 97; BMI 30.6
--- OUTSIDE RECORDS SUMMARY | 2025-01-11 14:42 | XMS_ITS | Clinical Summary ---
Author Organization [employer] [facility] Address [address] [place] [address] Care Team Providers Care Automobile Club Information Clerk Name Role Phone Unavailable Primary Care Provider [...] Description 10/13/2024 1:30 PM EDT Office Visit [facility] [address] [place] [address] Isis Oreilly, DDS Chronic periodontitis (Primary Dx); Dental caries [...] Years (1 of 2 - PCV) 09/12/2002 Dental Oral Exam 08/22/2024 02/21/2024, 12/16/2021 Dental Prophylaxis 08/29/2024 02/29/2024 COVID-19 Vaccine (1 - 2023-2 5 season) 2024 Influenza Vaccine (#1) 2024 Dental X-Ray: [facility] [...] Most Recently Relevant to Health Maintenance [facility]
== END 2025-01-11 13:04 | disposition home or self-care (01) ==
LOC: HO.HMCH 12:36
PROVIDERS: PCP Internal Medicine; Visit Provider Internal Medicine
DX: R05.1 Acute cough (principal)

== ENCOUNTER 2025-01-11 12:36 | Outpatient (REF) | payer OTHER, SELFPAY ==
--- NOTE | ~2025-01-11 | XR_ITS ---
EXAMINATION: XR CHEST 2 VIEWS HISTORY: J18.9 - Pneumonia, unspecified organism COMPARISON: Comparison is made with the prior examination dated 11/30/2017. FINDINGS: PA and lateral views of the chest are submitted. The lungs are expanded and clear. There is no pleural effusion, pneumothorax, or pulmonary vascular congestion. The heart is normal in size. The bones are intact. XR/XR chest 2V IMPRESSION: No acute cardiopulmonary abnormality. Electronically signed by: Sae Kc MD 01/11/2025 02:09 PM EDT
== END 2025-01-11 12:37 | disposition home or self-care (01) ==
LOC: HO.XRAY 12:36
PROVIDERS: PCP Internal Medicine; Visit Provider Internal Medicine
DX: R05.1 Acute cough (principal); J18.9 Pneumonia, unspecified organism; Z79.01 Long term (current) use of anticoagulants; Z79.891 Long term (current) use of opiate analgesic; Z79.52 Long term (current) use of systemic steroids; Z79.899 Other long term (current) drug therapy
CPT/HCPCS: 71046

== ENCOUNTER → 2025-01-11 13:14 | Outpatient (BNV) | payer OTHER, SELFPAY | PROVIDERS: PCP Internal Medicine; Visit Provider Radiology Diagnostic Radiology | DX: J18.9 Pneumonia, unspecified organism (principal) | CPT/HCPCS: 71046 ==

== ENCOUNTER 2025-01-14 09:40 | Emergency (ER) | payer OTHER, SELFPAY ==
--- NOTE | 2025-01-14 09:44 | ECG_ITS ---
Test Reason : CHEST PAIN Blood Pressure : */* mmHG Vent. Rate : 76 BPM Atrial Rate : 76 BPM P-R Int : 150 ms QRS Dur : 74 ms QT Int : 382 ms P-R-T Axes : 65 59 56 degrees QTcB Int : 429 ms Normal sinus rhythm Normal ECG When compared with ECG of 31-May-2020 15:20, No significant change was found Referred By: Generic ED Physician Electronically Signed By: Alex Nye
[2025-01-14 09:51] VITALS: BP 128/76; PULSE 87; RESP 18; TEMP 36.4; O2SAT 95; BMI 30.7
--- NOTE | 2025-01-14 11:09 | ED_ITS ---
HPI - General Adult General Chief complaint: General Medical Stated complaint: CP, back pain Time Seen by Provider: 01/14/25 11:04 Source: patient Mode of arrival: ambulatory Limitations: language barrier History of Present Illness ED Provider: Dr. Ellington HPI narrative: 39-year-old male history of DVT on Eliquis presented hospital today for evaluation of coughing chest pain upon coughing and headache upon coughing. Patient stated that he has been coughing for months. He had follow up with his primary care doctor where he was prescribed some prednisone and started on amoxicillin for antibiotic. Patient stated that his coughing involves postnasal drip. It is not letting up. He is feeling a itchiness in his throat and some nasal congestion. Denies any fever. Patient stated that he did take the prednisone course which did help with his coughing and help open his lungs out however he finished a course and his symptoms has returned. Denies any hemoptysis he has been compliant with his Eliquis Related Data Home Medications ?Medication ?Instructions ?Recorded ?Confirmed methadone 40 mg soluble tablet 70 mg PO DAILY 04/03/21 01/11/25 clonidine HCl 0.1 mg tablet mg PO 06/06/24 01/11/25 sertraline 50 mg tablet mg PO DAILY 06/06/24 5 Previous Rx's ?Medication ?Instructions ?Recorded compression stockings #2 ea 06/06/24 omeprazole 20 mg capsule,delayed See Rx Instructions . Route 07/17/24 release .COMPLEX #90 caps cane #1 ea 08/07/24 psyllium husk 0.52 gram capsule 1.04 g (2 x 0.52 gram) PO DAILY 90 11/01/24 (Fiber (psyllium husk)) days #180 caps sodium chloride 3 % nasal mist 1 spray intranasal BID post nasal 11/01/24 (Saline Nasal Mist) drip 90 days #126 mL ipratropium 20 mcg-albuterol 100 1 puff inhalation QID #4 grams 12/20/24 mcg/actuation mist for inhalation (Combivent Respimat) prednisone 50 mg tablet 50 mg PO DAILY 5 days #5 tab s 12/20/24 polyethylene glycol 3350 17 17 g PO DAILY #510 grams 0 01/02/25 gram/dose oral powder (Gavilax) albuterol sulfate 90 mcg/actuation 2 inh inhalation Q6 H PRN shortness 01/11/25 breath activated powder inhaler of breath or wheezing #1 ea amoxicillin 500 mg capsule 500 mg PO BID 7 days #14 ca ps 01/11/25 apixaban 5 mg tablet (Eliquis) 5 mg PO BID 90 days #18 0 tabs 01/12/25 cholecalciferol (vitamin D3) 25 25 mcg PO DAILY 90 day s #90 caps 01/12/25 mcg (1,000 unit) capsule fluticasone furoate 27.5 See Rx Instructions .Route 0 01/12/25 mcg/actuation nasal .COMPLEX #18.2 mL spray,suspension (Flonase Sensimist) albuterol sulfate 90 mcg/actuation 2 puff inhalation Q 6H PRN 01/14/25 aerosol inhaler (Ventolin HFA) shortness of breath or wheezing 30 days #8.5 grams azithromycin 250 mg tablet See Rx Instructions PO .COM PLEX #6 01/14/25 tabs benzonatate 200 mg capsule 200 mg PO TID PRN cough #30 caps 01/14/25 prednisone 50 mg tablet 50 mg PO DAILY 7 days #7 tab s 01/14/25 Allergies Allergy/AdvReac Type Severity Reaction Status Date / Time diphenhydramine (From Allergy Intermediate HIVES Verified 01/14/25 09:53 BENADRYL) morphine (MORPHINE) Allergy Intermediate BURNING Verified 01/14/25 09:53 Review of Systems 2 Review of Systems: Pertinent review of systems as mentioned in HPI. All other system otherwise negative. [facility] Past Medical History [facility] Narrative: Medical history as mentioned in HPI Medical History Severe major depression without psychotic features DVT (deep venous thrombosis) Asthma Gastritis Moderate recurrent major depression Varicose veins of bilateral lower extremities with pain Abdominal pain Overweight Constipation due to pain medication Difficulty swallowing Hepatitis C Depression with anxiety GERD (gastroesophageal reflux disease) Methadone use Surgical History History of esophagogastroduodenoscopy (EGD) Family History Family History Father Medical history unknown Mother Diabetes Mental health disorder Substance use disorder Maternal Grandmother Hypertension Maternal Grandfather No problems noted. Brother No problems noted. Brother No problems noted. Sister No problems noted. Sister No problems noted. Daughter No problems noted. Other No family history of cancer Social History Social History Household Members: None Housing: Apartment Are you a primary home care administrator to a significant other at home: No Do you presently have visiting nurse or other home services: No Alcohol intake: former Patient Tobacco Use Status: Current everyday Tobacco user Tobacco use type: Cigarette Cigarettes Per Day: 5 e-Cigarette/Vaping Use: Never Used Second Hand Smoke Exposure: No Advance Directives: No Advance Directives Information Provided: Yes service: No Current occupational status: disabled Cognitive needs: No Hearing needs: No Vision needs: No Physical Exam ED Exam Exam: General: Pleasant, no distress, interacting appropriately Head: Normacephalic, atraumatic ENT: oral mucosa moist, neck supple, no tracheal deviation Cardiovascular: regular rate, regular rhythm, no murmurs, rubbing, gallops Respiratory: Bilateral expiratory wheeze on exam diminished lung sounds throughout Extremities: No limb pain or swelling, no calf tenderness Neurological: Awake and alert, no facial droop noted Skin: Warm and dry Psychiatric: Appropriate mood and thoughts Vital Signs: Vital Signs - 24 hr 01/14/25 09:51 01/14/25 11:46 01/14/25 12:00 Temperature 97.5 F 98.2 F Pulse Rate 87 84 63 Respiratory Rate 18 18 16 Blood Pressure 128/76 119/71 Pulse Oximetry 95 97 Oxygen Delivery Method Room Air Room Air BMI result Body Mass Index 30.7 Medications Administered Discontinued Medications Generic Name Dose Route Start Last Admin Trade Name Kolbyq PRN Reason Stop Dose Admin Albuterol/Ipratropium 3 ml 01/14/25 11:21 01/14/25 11:47 Albuterol/Iprat 2.5/0.5mg 3 Ml Ampul.Neb INHALE 01/14/25 11:22 3 ml ONCE ONE Administration Benzonatate 200 mg 01/14/25 11:21 01/14/25 11:44 Benzonatate 100 Mg Capsule PO 01/14/25 11:22 200 mg ONCE ONE Administration Oxymetazoline HCl 2 spray 01/14/25 11:21 01/14/25 11:44 Oxymetazoline Hcl 0.05 % Nasal 15 Ml [place] NOSTRIL-B 01/14/25 11:22 2 spray ONCE ONE Administration Prednisone 40 mg 01/14/25 11:21 01/14/25 11:44 Prednisone 20 Mg Tablet PO 01/14/25 11:22 40 mg ONCE ONE Administration Medical Decision Making Medical Decision Making [facility] Narrative: This is a 39-year-old male history of DVT on Eliquis presented hospital today for evaluation that has been going on for months. His symptoms likely secondary to postnasal dripping from possible sinusitis versus allergies, it could be chronic bronchitis as well. The patient is a smoker. He does not appear to be hypoxic or tachypneic or in any respiratory distress at this time. Chest x-ray will be obtained. We will plan to give patient a breathing treatment here. I do not think patient has PE he has been compliant with his Eliquis. Patient stated the chest pain only happens when he coughs. . Tessalon Perles will be given to the patient as well and Tylenol will be given for his headache. Plan to reassess patient after medication. Patient stated his symptom has improved after breathing treatment and steroids. We will plan to discharge patient home. Tessalon Perles will be prescribed patient. Patient will have a bottle Afrin to take home with. Patient we will plan to start him on Z-Ever. We will also plan to start patient on a course of steroids against. Patient agrees and understands this plan all questions were addressed. Review patient's lab work. It is unremarkable. Patient's chest x-ray did not show any signs of pneumonia. Differential Diagnosis Differential Diagnoses: The differential diagnosis associated with the presentation includes Bronchitis, pneumonia, allergies, and sinusitis Lab Data [facility] Lab Attestation statement: I reviewed the patient's lab results. 01/14/25 11:06 01/14/25 11:06 Labs: Lab Results 01/14/25 01/14/25 Range/Units 11:06 11:37 WBC 7.0 (4.8-10.8) X10*3/uL RBC 4.72 (4.60-5.80) X10*6/uL Hgb 13.5 L (14.0-18.0) g/dl Hct 37.6 L (42.0-52.0) % MCV 79.7 L (80.0-98.0) fL MCH 28.6 (27.0-33.0) pg MCHC 35.9 (31.0-36.0) g/dl RDW 13.6 (11.0-16.0) % Plt Count 276 (160-400) X10*3/uL MPV 9.2 L (9.4-12.4) fL Immature Gran % (Auto) 0.1 (0.0-0.4) % Neut % (Auto) 50.7 (45-73) % Lymph % (Auto) 25.2 (20-40) % [place] % (Auto) 7.7 (2-11) % Eos % (Auto) 15.9 H (0-4) % Baso % (Auto) 0.4 (0-2) % Lymph # (Auto) 1.8 (1.2-4.9) X10*3/uL [place] # (Auto) 0.5 (0.1-1.2) X10*3/uL Eos # (Auto) 1.1 H (0.0-0.4) X10*3/uL Baso # (Auto) 0.0 (0.0-0.2) X10*3/uL Abs Immat Gran (auto) 0.01 (0.00-0.03) X10*3/uL Absolute Neuts (auto) 3.5 (2.0-8.3) x10*3/uL Absolute Nucleated RBC 0.000 (0.0-0.012) X10*3/uL Nucleated RBC % (auto) 0.0 (0.0-0.2) /100WBC PT 13.8 H (10.9-12.4) SEC INR 1.2 H (0.9-1.1) Sodium 138 (135-145) mmol/L Potassium 4.2 (3.3-5.1) mmol/L Chloride 106 (96-108) mmol/L Carbon Dioxide 26 (22-29) mmol/L Anion Gap 10 L (12-20) BUN 8 L (9-16) mg/dL Creatinine 0.91 (0.5-1.4) mg/dL Estim Creat Clear Calc 128.7 Estimated GFR > 60 Random Glucose 91 (60-115) mg/dL Calcium 9.0 (8.4-10.2) mg/dL Magnesium 2.3 (1.6-2.6) mg/dL Total Bilirubin 0.9 (0.0-1.0) mg/dL AST 26 (5-37) U/L ALT 18 (0-40) U/L Alkaline Phosphatase 88 (39-117) U/L Troponin I High Sens < 2.7 (<3.5-35.0) ng/L Total Protein 7.9 (6.5-8.0) g/dL Albumin 4.5 (3.5-5.0) g/dL COVID-19 (JORGE) Negative (Negative) COVID-19 Clin Com See Note Influenza Type A (DHIRAJ) Negative (Negative) Influenza Type B (DHIRAJ) Negative (Negative) Influenza A & B Note See Note Independent Interpretation I performed an independent interpretation of an: Plain X-Ray Prescription Management I considered prescription management with: Antibiotic Discharge Plan Discharge Clinical Impression: Bronchitis Patient Disposition: Home, Self-Care Instructions: Chronic Bronchitis (ED) Prescriptions: New prednisone 50 mg tablet 50 mg PO DAILY 7 Days Qty: 7 0RF azithromycin 250 mg tablet See Rx Instructions .ROUTE .COMPLEX Qty: 6 0RF Rx Instructions: For 250 mg dose pack: take 500 mg today (day 1), then 250 mg for 4 days (days 2-5) benzonatate 200 mg capsule 200 mg PO TID PRN (Reason: cough) Qty: 30 0RF albuterol sulfate [Ventolin HFA] 90 mcg/actuation HFA aerosol inhaler 2 puff inhalation Q6H PRN (Reason: shortness of breath or wheezing) 30 Days Qty: 8.5 0RF No Action omeprazole 20 mg capsule,delayed release(DR/EC) See Rx Instructions .ROUTE .COMPLEX Qty: 90 1RF Dose Instruction: TOME 1 CAPSULA POR VIA ORAL DAILY FOR 90 DAYS Rx Instructions: TOME 1 CAPSULA POR VIA ORAL DAILY FOR 90 DAYS (DME) cane Device See Rx Instructions .Route Qty: 1 0RF Rx Instructions: As directed psyllium husk [Fiber (psyllium husk)] 0.52 gram capsule 1.04 g PO DAILY 90 Days Qty: 180 1RF polyethylene glycol 3350 [Gavilax] 17 gram/dose powder 17 g PO DAILY Qty: 510 1RF Flonase Sensimist 27.5 mcg/actuation spray,suspension See Rx Instructions .ROUTE .COMPLEX Qty: 18.2 0RF Dose Instruction: USE 1 SPRAY INTRANASALLY DAILY FOR 1 MONTH INTO EACH NOSTRIL Rx Instructions: USE 1 SPRAY INTRANASALLY DAILY FOR 1 MONTH INTO EACH NOSTRIL Eliquis 5 mg tablet 5 mg PO BID 90 Days Qty: 180 1RF cholecalciferol (vitamin D3) 25 mcg (1,000 unit) capsule 25 mcg PO DAILY 90 Days Qty: 90 1RF methadone 40 mg tablet,soluble 70 mg PO DAILY Saline Nasal Mist 3 % mist 1 spray intranasal BID 90 Days Qty: 126 1RF albuterol sulfate 90 mcg/actuation aerosol powdr breath activated 2 inh inhalation Q6H PRN (Reason: shortness of breath or wheezing) Qty: 1 1RF amoxicillin 500 mg capsule 500 mg PO BID 7 Days Qty: 14 0RF sertraline 50 mg tablet PO DAILY clonidine HCl 0.1 mg tablet PO (DME) compression stockings 40 mmHg See Rx Instructions .Route .MEDSUPPLY Qty: 2 4RF Rx Instructions: As directed Combivent Respimat 20-100 mcg/actuation mist 1 puff inhalation QID Qty: 4 0RF Rx Instructions: space evenly during waking hours prednisone 50 mg tablet 50 mg PO DAILY 5 Days Qty: 5 0RF Print Language: Other
[2025-01-14 11:13] LABS: MANUAL DIFF FLAG NO
[2025-01-14 11:16] LABS: Hematocrit 37.6 % (42.0-52.0); Hemoglobin 13.5 g/dl (14.0-18.0); Imm Gran Abs Auto 0.01 X10*3/uL (0.00-0.03); Imm Gran Pct Auto 0.1 % (0.0-0.4); Lymphocytes Absolute Auto 1.8 X10*3/uL (1.2-4.9); Mean Corpuscular HGB Conc 35.9 g/dl (31.0-36.0); Mean Corpuscular Hemoglobin 28.6 pg (27.0-33.0); Mean Corpuscular Volume 79.7 fL (80.0-98.0); NRBC Abs Auto 0.000 X10*3/uL (0.0-0.012); NRBC Pct Auto 0.0 /100WBC (0.0-0.2); Platelet Count 276 X10*3/uL (160-400); Red Blood Count 4.72 X10*6/uL (4.60-5.80); White Blood Count 7.0 X10*3/uL (4.8-10.8)
[2025-01-14 11:23] LABS: INTERNATIONAL NORM RATIO 1.2 (0.9-1.1); Prothrombin Time 13.8 SEC (10.9-12.4)
--- OUTSIDE RECORDS SUMMARY | 2025-01-14 11:36 | XMS_ITS | Clinical Summary ---
Author Organization [employer] Address [address] [place] [address] Care Team Providers Care [employer] Name Role Phone Unavailable Primary Care Provider [...] Most Recently Relevant to Health Maintenance Insurance [facility] [address] [address] MEDICAID STAND ADULT
[2025-01-14] MEDS: Oxymetazoline HCl 0.05 % Nasal 15 ML SPRAY 2 SPRAY NOSTRIL-B (11:44)
[2025-01-14 11:46] VITALS: PULSE 84; RESP 18; O2SAT 96
[2025-01-14] MEDS: Albuterol/Iprat 2.5/0.5MG 3 ML AMPUL.NEB INHALE (11:47)
[2025-01-14 12:00] VITALS: BP 119/71; PULSE 63; RESP 16; TEMP 36.8; O2SAT 97
[2025-01-14 12:01] LABS: Alanine Aminotransferase 18 U/L (0-40); Albumin Level 4.5 g/dL (3.5-5.0); Alkaline Phosphatase 88 U/L (39-117); Anion Gap 10 (12-20); Aspartate Amino Transferase 26 U/L (5-37); Blood Urea Nitrogen 8 mg/dL (9-16); Calcium 9.0 mg/dL (8.4-10.2); Carbon Dioxide 26 mmol/L (22-29); Chloride 106 mmol/L (96-108); Creatinine Clr Calc Pharmacy 128.7; Estimated Glomerular Filt Rate > 60; Magnesium 2.3 mg/dL (1.6-2.6); Potassium 4.2 mmol/L (3.3-5.1); Sodium 138 mmol/L (135-145); Total Protein 7.9 g/dL (6.5-8.0)
[2025-01-14 12:07] LABS: Troponin-I High Sensitivity < 2.7 ng/L (<3.5-35.0)
[2025-01-14 12:42] LABS: COVID-19 Test Negative (Negative); IDNOW Serial# 55D5AD1C; IDNOW Serial# 58CA691E
[2025-01-14 12:43] LABS: Influenza B2 Negative (Negative)
== END 2025-01-14 13:15 | disposition home or self-care (01) ==
PROVIDERS: Physician Assistant; Emergency Provider Student in an Organized Health Care Education/Training Program; PCP Internal Medicine
DX: R07.89 Other chest pain (principal); M54.50 Low back pain, unspecified; R05.9 Cough, unspecified; Z79.899 Other long term (current) drug therapy; Z79.01 Long term (current) use of anticoagulants; Z11.52 Encounter for screening for COVID-19
CPT/HCPCS: 36415; 80053; 83735; 84484; 85025; 85610; 87502; 87635; 93005; 94640; 99284

== ENCOUNTER → 2025-01-14 09:44 | Outpatient (BNV) | payer OTHER, SELFPAY | PROVIDERS: Emergency Provider Student in an Organized Health Care Education/Training Program; PCP Internal Medicine; Visit Provider Internal Medicine Cardiovascular Disease | DX: R07.9 Chest pain, unspecified (principal) | CPT/HCPCS: 93010 ==